=== PATIENT | female | born 1930 | race Caucasian/White ===

== ENCOUNTER 2016-02-29 15:44 | Inpatient (IN) | payer OTHER ==
[~2016-02-29] VITALS: Ht 154.9 cm; Wt 73.3 kg
[~2016-02-29 15:44] MED LIST: ACET-1311 PO; ADVIN25050 INH; ALBINS INH; ALBU1AER9 INH; ASCO500T3 PO; ATV1 PO; BENZ100C84 PO; CHOL100010 PO; CLOB-65 EXT; CZR50 PO; DPRSCR45 TOP; FULV250I2 IM; FURO40TA3 PO; LTRCR30 TOP; MELO7.5T5 PO; OXGN; PRED-301 PO; SERT-234 PO; TAMO20TA47 PO
[2016-02-29] MEDS ORDERED: SODIUM CHLORIDE 0.9% 1000ML 500 ML IV STA (16:00)
[2016-02-29] MEDS ORDERED: ONDANSETRON INJ 2 MG/ML 2 ML VIAL IV STA (16:00)
[2016-02-29] MEDS ORDERED: HYDROCORTISONE SOD SUCCINATE 100 MG/2 ML VIAL IV STA (16:00)
[2016-02-29] MEDS ORDERED: SODIUM CHLORIDE 0.9% 1000ML 1,000 ML IV STA (16:00)
--- NOTE | 2016-02-29 16:06 | EMERGENCY ROOM VISIT NOTE ---
History Report prepared by Madeleine: Bri Curry Under the Supervision of: Dr. Ashok Liriano M.D. First contact with patient: 15:50 Chief Complaint: DIARRHEA Stated Complaint: BOWELS ARE LOOSE History of Present Illness The patient is a 85 year old female who presents to the Emergency Room with complaints of worsening diarrhea that started two days ago. 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 Per the patient's daughter , there was not any blood in the diarrhea. The patient has never experienced these symptoms in the past. Her daughter reports that 10 days ago, the patient developed nausea. The patient's daughter took her to see her PCP and they said that everything appeared unremarkable. They sent her home with a nausea medication, but the nausea persisted so the patient had blood work done. The patient's daughter contacted the office about the results and they told her that everything was unremarkable. The patient is not eating as much as she normally does. She is also experiencing rhinorrhea, but her daughter has not noticed any coughing. The patient had diarrhea all day today, which is worse than it has been over the past two days. The patient was on antibiotics over and she has experienced C. Diff several years ago. The patient's daughter adds that the patient fell two times in the last few days. During the first fall, it appeared that the patient fell out of bed. During the second fall , the patient fell backwards--no injury was sustained. The patient's daughter adds that she is on prednisone every other day due to skin pruritus. Source of History: family (daughter) Onset: two days ago Quality: other (diarrhea) Timing: worsening Associated Symptoms: + nausea, No cough Note: rhinorrhea, decreased appetite Review of Systems See HPI for pertinent positives & negatives. A total of 10 systems reviewed and were otherwise negative. Past Medical & Surgical Medical Problems: (1) Breast cancer (2) Chest pain (3) COPD (chronic obstructive pulmonary disease) (4) Depressive disorder (5) DM (diabetes mellitus) (6) Dyslipidemia (7) HTN (hypertension) (8) Lung nodules (9) Osteoarthritis (10) Osteoporosis (11) Port catheter in place Surgical Problems: (1) H/O mastectomy (2) H/O: hysterectomy (3) History of appendectomy (4) History of cataract surgery (5) S/P knee replacement Family History Cancer Diabetes mellitus Gallbladder disease Heart disease Hypertension Social History Smoking Status: Former Smoker Alcohol Use: none Drug Use: none Marital Status: Housing Status: lives alone Occupation Status: retired Current/Historical Medications Scheduled Acetaminophen (Tylenol), 650 MG PO Q6HR PRN Albuterol 0.083% Soln (Ventolin 0.083% Soln *), 1 TREATMENT INH Q6HR PRN Ascorbic Acid (Vitamin C), 1,000 MG PO QAM Cholecalciferol (Vitamin D), 1,000 INTER.UNIT PO QAM Clobetasol Propionate 0.05% (Temovate 0.05%), 1 APPLN EXT Q2D Clotrimazole (Lotrimin 1%), 1 APPLN TOP BID Fluticasone Prop/Salmeterol (Advair Diskus 250-50 Mcg/Dose), 1 PUFF INH BID Fulvestrant (Faslodex), 250 MG IM Q4WK Furosemide (Lasix), 40 MG PO QAM Lorazepam (Ativan *), 1 MG PO TID Losartan Potassium (Cozaar *), 100 MG PO QAM Oxygen (Oxygen), 2 LITERS NA CONTINOUS Prednisone (Prednisone), 5 MG PO Q2D Sertraline (Zoloft), 100 MG PO HS Tamoxifen (Nolvadex), 20 MG PO DAILY Scheduled PRN Benzonatate (Tessalon Perles), 1 CAP PO TID PRN for Cough Betamethasone Dip (Betamethasone Dipropionat), 1 DOSE TOP DAILY PRN for PRN Allergies Coded Allergies: Amoxicillin (Verified Allergy, Mild, ITCHING, 02/29/16) Colchicine (Verified Allergy, Mild, RASH ITCHING, 02/29/16) Dimenhydrinate (Verified Allergy, Mild, ITCHING, 02/29/16) Homatropine (Verified Allergy, Mild, ITCHING, 02/29/16) Hydrocodone (Verified Allergy, Mild, ITCHING, 02/29/16) Hydroxyzine (Verified Allergy, Mild, ITCHING, 02/29/16) Meperidine (Verified Allergy, Mild, RASH, 02/29/16) Morphine (Verified Allergy, Mild, ITCHING, 02/29/16) Opioid Analgesics (Unverified Allergy, Mild, RASH ITCHING, 02/29/16) Allopurinol (Verified Allergy, Unknown, RASH, 02/29/16) ROSALIA Inhibitors (Unverified Adverse Reaction, Mild, COUGH, 02/29/16) Atorvastatin (Unverified Adverse Reaction, Mild, BONE PAIN, 02/29/16) Gabapentin (Unverified Adverse Reaction, Mild, FATIGUE, 02/29/16) Physical Exam Vital Signs Date Time Temp Pulse Resp B/P Pulse Ox O2 Delivery O2 Flow Rate FiO2 02/29/16 17:45 70 16 129/49 93 02/29/16 15:47 36.7 70 18 144/82 92 Room Air Physical Exam GENERAL: Patient is in no acute distress. HEENT: No acute trauma, normocephalic atraumatic, mucous membranes moist, no nasal congestion, no scleral icterus. NECK: No stridor, no adenopathy, no meningismus, trachea is midline. LUNGS: Clear to auscultation bilaterally, no wheeze, no rhonchi, breath sounds equal. HEART: Without murmurs gallops or rubs, regular rate and rhythm. ABDOMEN: Soft, nontender, bowel sounds positive, no hernias, no peritonitis. EXTREMITIES: No cyanosis or edema, full range of motion of all the joints without pain or difficulty, no signs for acute trauma. RECTAL: Brown stool, no hard stool in rectum, no gross blood. NEUROLOGIC: Moving all extremities, awake, alert, no focal motor deficits. SKIN: No rash, no jaundice, no diaphoresis. Medical Decision & Procedures ER Provider Diagnostic Interpretation: CT results as stated below per my review and radiologist interpretation: CT ABD/PELVIS IV CONTRAST ONLY IMPRESSION: 1. No evidence of bowel obstruction. No evidence of free air. 2. Sigmoid diverticulosis with wall thickening, likely secondary to peridiverticular muscular hypertrophy 3. Bilateral renal cysts including a relatively stable complex 24 mm upper pole left renal cyst containing rim calcification 4. Interval development of pancreatic ductal dilatation and 2 cystic pancreatic lesions measuring 13 mm and 26 mm respectively. These could represent IPMNs, or other cystic pancreatic lesions. GI consultation should be considered 5. Interval development of nonspecific small hypodense splenic lesions (tiny infarcts versus other etiologies) Electronically signed by: Werner Escobar M.D. 02/29/2016 5:45 PM Dictated Date/Time: 02/29/2016 5:34 PM Laboratory Results 02/29/16 15:55 Red Blood Count 3.77, Mean Corpuscular Volume 95.5, Mean Corpuscular Hemoglobin 32.9, Mean Corpuscular Hemoglobin Concent 34.4, Mean Platelet Volume 9.6, Neutrophils (%) (Auto) 67.4, Lymphocytes (%) (Auto) 16.2, Monocytes (%) (Auto) 14.3, Eosinophils (%) (Auto) 0.5, Basophils (%) (Auto) 0.2, Neutrophils # (Auto ) 2.92, Lymphocytes # (Auto) 0.70, Monocytes # (Auto) 0.62, Eosinophils # (Auto ) 0.02, Basophils # (Auto) 0.01 02/29/16 15:55 Test 02/29/16 15:55 White Blood Count 4.33 K/uL (4.8-10.8) Red Blood Count 3.77 M/uL (4.2-5.4) Hemoglobin 12.4 g/dL (12.0-16.0) Hematocrit 36.0 % (37-47) Mean Corpuscular Volume 95.5 fL (80-100) Mean Corpuscular Hemoglobin 32.9 pg (25-34) Mean Corpuscular Hemoglobin Concent 34.4 g/dl (32-36) Platelet Count 202 K/uL (130-400) Mean Platelet Volume 9.6 fL (7.4-10.4) Neutrophils (%) (Auto) 67.4 % Lymphocytes (%) (Auto) 16.2 % Monocytes (%) (Auto) 14.3 % Eosinophils (%) (Auto) 0.5 % Basophils (%) (Auto) 0.2 % Neutrophils # (Auto) 2.92 K/uL (1.4-6.5) Lymphocytes # (Auto) 0.70 K/uL (1.2-3.4) Monocytes # (Auto) 0.62 K/uL (0.11-0.59) Eosinophils # (Auto) 0.02 K/uL (0-0.5) Basophils # (Auto) 0.01 K/uL (0-0.2) RDW Standard Deviation 47.2 fL (36.4-46.3) RDW Coefficient of Variation 13.5 % (11.5-14.5) Immature Granulocyte % (Auto) 1.4 % Immature Granulocyte # (Auto) 0.06 K/uL (0.00-0.02) Anion Gap 13.0 mmol/L (3-11) Est Creatinine Clear Calc Drug Dose 52.2 ml/min Estimated GFR () 82.8 Estimated GFR (Non- 71.4 BUN/Creatinine Ratio 11.4 (10-20) Calcium Level 8.2 mg/dl (8.5-10.1) Total Bilirubin 0.3 mg/dl (0.2-1) Aspartate Amino Transf (AST/SGOT) 20 U/L (15-37) Alanine Aminotransferase (ALT/SGPT) 28 U/L (12-78) Alkaline Phosphatase 32 U/L (45-117) Total Protein 6.1 gm/dl (6.4-8.2) Albumin 2.9 gm/dl (3.4-5.0) Globulin 3.2 gm/dl (2.5-4.0) Albumin/Globulin Ratio 0.9 (0.9-2) Lipase 306 U/L (73-393) Laboratory results reviewed by me. Medications Administered Medications (Trade) Dose Ordered Sig/Michael Route Start Time Stop Time Status Last Admin Dose Admin Sodium Chloride (Nss 1000ml) 500 ml @ 999 mls/hr Q31M STAT IV 02/29/16 16:00 02/29/16 16:30 DC 02/29/16 16:21 999 MLS/HR Ondansetron HCl 4 mg 4 mg NOW STAT IV 02/29/16 16:00 02/29/16 16:03 DC 02/29/16 16:21 4 MG Sodium Chloride (Nss 1000ml) 1,000 ml @ 125 mls/hr Q8H STAT IV 02/29/16 16:00 02/29/16 23:59 02/29/16 16:50 125 MLS/HR Hydrocortisone Sodium Succinate (Solu-Cortef IV) 100 mg NOW STAT IV 02/29/16 16:00 02/29/16 16:03 DC 02/29/16 16:21 100 MG ED Course 1550: The patient was evaluated in room B11. A complete history and physical exam was performed. 1600: Ordered Hydrocortisone Sodium Succinate 100 mg IV, Sodium Chloride 1000 ml @ 125 mls/hr IV, Zofran 4 mg IV, Sodium Chloride 500 ml @ 999 mls/hr IV 1754: I reassessed the patient. She is resting comfortably. I also performed a rectal exam at this time. 175: I discussed the patient's case with the case making machine operator. She is going to go talk to the patient. Medical Decision Differential diagnoses considered include dehydration, electrolyte imbalance, anemia, renal failure, UTI, colitis, diverticulitis, C. Diff. There is no leukocytosis or worrisome anemia. No significant electrolyte abnormality, kidney failure or hepatitis. There is no pancreatitis. Stool C. difficile testing is presently pending as the patient has not yet been able to provide a sample. Abdominal and pelvis CT shows some findings in the pancreas for which follow-up was suggested, I suspect the pancreatic findings are incidental findings. There was no diverticulitis or bowel obstruction. No abscess. On my exam, there was no peritonitis. The patient was not febrile or toxic. Rectal exam revealed no stool in the rectal vault, the stool was brown and there was no gross blood. The patient received IV saline, IV Zofran. She was given IV hydrocortisone as stress dose steroids. The family is concerned about her safety at home as she has fallen twice. We did look to see if there was availability at [facility] for rehabilitation and strengthening however, there are no beds available. The patient was seen by case management. The decision has been made for the patient to be hospitalized and assessed further for placement versus rehabilitation. She is too weak to be discharged home. The on-call hospitalist was consulted. At this point, the etiology for her complaints and presentation is unclear. We await stool testing. Impression Primary Impression: Weakness Additional Impressions: Frequent falls Diarrhea Scribe Attestation The scribe's documentation has been prepared under my direction and personally reviewed by me in its entirety. I confirm that the note above accurately reflects all work, treatment, procedures, and medical decision making performed by me. Departure Information Dispostion Being Evaluated By Hospitalist Referrals Humberto Ibanez D.O. (PCP) Patient Instructions My [facility] Problem Qualifiers
[2016-02-29] MEDS ORDERED: OPTIRAY 320 IV PRN (16:15)
[2016-02-29 16:35] LABS: MEAN CELL VOLUME 95.5 fL (80-100); MEAN CORPUSCULAR HEMOGLOBIN 32.9 pg (25-34); MEAN CORPUSCULAR HGB CONC 34.4 g/dl (32-36); MEAN PLATELET VOLUME 9.6 fL (7.4-10.4); PLATELET COUNT 202 K/uL (130-400); RED BLOOD COUNT 3.77 M/uL (4.2-5.4); WHITE BLOOD COUNT 4.33 K/uL (4.8-10.8)
[2016-02-29 16:50] LABS: BUN/CREATININE RATIO 11.4 (10-20); CALCIUM 8.2 mg/dl (8.5-10.1); CREATININE 0.77 mg/dl (0.60-1.20); POTASSIUM 3.1 mmol/L (3.5-5.1)
[2016-02-29 16:53] LABS: ALB/GLOB RATIO 0.9 (0.9-2)
[2016-02-29 17:10] LABS: BASO % 0.2 %; BASO ABS # 0.01 K/uL (0-0.2); COMPLETE YES; EOS % 0.5 %; IG% 1.4 %; LYMPH % 16.2 %; MONO % 14.3 %; NEUT % 67.4 %
--- NOTE | 2016-02-29 17:47 | DIAGNOSTIC IMAGING REPORT ---
CT ABD/PELVIS IV CONTRAST ONLY CLINICAL HISTORY: Generalized abdominal pain COMPARISON STUDY: 02/22/2009 TECHNIQUE: Following the IV administration of 118 mL of [id number], CT scan of the abdomen and pelvis was performed from the lung bases to the proximal femurs. Images are reviewed in the axial, sagittal, and coronal planes. IV contrast was administered without complication. CT DOSE: 602.27 mGy.cm FINDINGS: Lower chest: There is bibasal atelectasis. Liver: There is mild hepatic steatosis. No focal masses are visualized. There is no ductal dilatation. The portal vein appears patent. Gallbladder: Unremarkable. Spleen: The spleen is normal in size. Since the prior study, the patient has developed several small peripheral hypodense hepatic lesions, the largest of which measures 1 cm. Pancreas: Since the prior study, the patient has developed pancreatic ductal dilatation. There is a 26 mm cystic lesion within the pancreatic tail. There is a 13 mm cystic lesion within the pancreatic body with adjacent calcifications. GI consultation is recommended for consideration of endoscopic ultrasonographic follow-up. Adrenal glands: Unremarkable. Kidneys: There are bilateral renal cysts, including a complex 24 mm upper pole left renal cyst containing rim calcification. This remain similar to the prior study. Bowel: There are no transition zones indicate bowel obstruction. There is colonic diverticulosis. There is mild sigmoid wall thickening, likely secondary to peridiverticular muscular hypertrophy. There is no evidence of acute peridiverticular inflammatory change. Peritoneum: There is no intraperitoneal free air or abdominal ascites. Vasculature: The abdominal aorta is normal in course and caliber. Adenopathy: None. Pelvic viscera: The uterus appears surgically absent. Skeletal structures: Arthritic changes are present within the hips right greater than left. No destructive lesions are visualized. IMPRESSION: 1. No evidence of bowel obstruction. No evidence of free air. 2. Sigmoid diverticulosis with wall thickening, likely secondary to peridiverticular muscular hypertrophy 3. Bilateral renal cysts including a relatively stable complex 24 mm upper pole left renal cyst containing rim calcification 4. Interval development of pancreatic ductal dilatation and 2 cystic pancreatic lesions measuring 13 mm and 26 mm respectively. These could represent IPMNs, or other cystic pancreatic lesions. GI consultation should be considered 5. Interval development of nonspecific small hypodense splenic lesions (tiny infarcts versus other etiologies) Electronically signed by: Werner Escobar M.D. 02/29/2016 5:45 PM Dictated Date/Time: 02/29/2016 5:34 PM
[2016-02-29] MEDS ORDERED: ACETAMINOPHEN 325 MG TAB PO PRN (19:00)
[2016-02-29] MEDS ORDERED: ONDANSETRON INJ 2 MG/ML 2 ML VIAL IV PRN (19:00)
[2016-02-29] MEDS ORDERED: ALBUTEROL 0.083% NEBU SOLN 3 ML VIAL INH PRN (19:30)
[2016-02-29] MEDS ORDERED: CAMPLOT10 EXT (19:35)
[2016-02-29] MEDS ORDERED: PRVHFAIN INH (19:35)
[2016-02-29] MEDS ORDERED: MRLP17X PO (19:35)
[2016-02-29] MEDS ORDERED: TRMCR130WC EXT (19:35)
[2016-02-29] MEDS ORDERED: CLOT1CRE4 TOP (19:35)
[2016-02-29] MEDS ORDERED: RBTUDL5 PO (19:35)
[2016-02-29] MEDS ORDERED: ONDA4TAB46 PO (19:35)
[2016-02-29] MEDS ORDERED: GLUCOSE 10 TABS/TUBE PO PRN (19:45)
[2016-02-29] MEDS ORDERED: GLUCOSE 40% GEL 15 GM TUBE PO PRN (19:45)
[2016-02-29] MEDS ORDERED: GLUCAGON FOR INJ 1 MG VIAL SQ PRN (19:45)
[2016-02-29] MEDS ORDERED: DEXTROSE 50% 50 ML SYR IV PRN (19:45)
[2016-02-29] MEDS ORDERED: IV FLUIDS COMPLETED PRN (19:45)
--- NOTE | 2016-02-29 20:03 | History and Physical ---
History & Physical Date & Time of Service: Feb 29, 2016 at 19:42 Chief Complaint: Bowels Are Loose Primary Care Physician: Humberto Ibanez D.O. History of Present Illness Source: family, clinic records, hospital records This is an 85 year old female with PMH of COPD, HTN, DM type 2 diet controlled, breast cancer with bone metastasis, primary progressive aphasia, questionable history of CVA, who presents to the ED for nausea, diarrhea, and poor PO intake. History obtained from family due to patient's aphasia. Starting 1.5 weeks ago patient became ill with nausea and poor PO intake. Denies vomiting. She was seen in clinic and prescribed Zofran which did not help. Then starting 2 days ago she has diarrhea which worsened today. Family reports large amount of foul smelling liquid stool with incontinence. They did not notice any blood. Family feels she may be dizzy due to poor PO intake. Patient has lost 8 lb in past few weeks. Family states she is always cold and has chronic rhinorrhea. Family denies any fevers, apparent chest pain, SOB. Family reported to ER disease case manager rn that patient has been generally weak and had multiple falls in past month. Patient was on antibiotics in late January for URI symptoms. 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 Anterior mediastinal lymph node showed malignant cells on biopsy 2009 Metastatic disease to multiple bones 2009 (C2, T6, R acetabulum, R pubic ramus) Recieving Faslodex since 2009 Status: Chronic (2) COPD (chronic obstructive pulmonary disease) Status: Chronic (3) Depressive disorder Status: Chronic (4) DM (diabetes mellitus) Status: Chronic (5) Dyslipidemia Permanent Comment: Statin discontinued Jan 2014 due to patient preference Status: Chronic (6) HTN (hypertension) Status: Chronic (7) Lung nodules Permanent Comment: CT 07/23/2009 showed RLL lung nodule (4x2 mm, unchanged), LLL lung nodule (5 mm, unchanged); other lung nodules remained stable, no new lung nodules noted Status: Chronic (8) Osteoarthritis Status: Chronic (9) Osteoporosis Status: Chronic (10) Port catheter in place Permanent Comment: L subclavian tunnel A-port inserted 01/26/2010 Status: Chronic Surgical Problems: (1) H/O mastectomy Status: Chronic (2) H/O: hysterectomy Status: Chronic (3) History of appendectomy Permanent Comment: Incidental with hysterectomy Status: Chronic (4) History of cataract surgery Permanent Comment: bilateral Status: Chronic (5) S/P knee replacement Permanent Comment: L knee replacement Status: Chronic Family History Cancer Diabetes mellitus Gallbladder disease Heart disease Hypertension Social History Not obtainable due to aphasia. Marital Status: Housing status: lives alone Occupational Status: retired Immunizations History of Influenza Vaccine: N/A Influenza Vaccine Date: Oct 29, 2008 History of Tetanus Vaccine?: Yes History of Pneumococcal: Yes Pneumococcal Date: Dec 05, 1997 History of Hepatitis B Vaccine: Yes Multi-Drug Resistant Organisms History of MDRO: No Allergies Coded Allergies: Amoxicillin (Verified Allergy, Mild, ITCHING, 02/29/16) Colchicine (Verified Allergy, Mild, RASH ITCHING, 02/29/16) Dimenhydrinate (Verified Allergy, Mild, ITCHING, 02/29/16) Homatropine (Verified Allergy, Mild, ITCHING, 02/29/16) Hydrocodone (Verified Allergy, Mild, ITCHING, 02/29/16) Hydroxyzine (Verified Allergy, Mild, ITCHING, 02/29/16) Meperidine (Verified Allergy, Mild, RASH, 02/29/16) Morphine (Verified Allergy, Mild, ITCHING, 02/29/16) Opioid Analgesics (Unverified Allergy, Mild, RASH ITCHING, 02/29/16) Allopurinol (Verified Allergy, Unknown, RASH, 02/29/16) ROSALIA Inhibitors (Unverified Adverse Reaction, Mild, COUGH, 02/29/16) Atorvastatin (Unverified Adverse Reaction, Mild, BONE PAIN, 02/29/16) Gabapentin (Unverified Adverse Reaction, Mild, FATIGUE, 02/29/16) Home Medications Scheduled Acetaminophen (Tylenol), 650 MG PO Q6HR PRN Albuterol 0.083% Soln (Ventolin 0.083% Soln *), 1 TREATMENT INH Q6HR PRN Ascorbic Acid (Vitamin C), 1,000 MG PO QAM Camphor & Menthol (Sarna), 1 APPLN EXT UD Cholecalciferol (Vitamin D), 1,000 INTER.UNIT PO QAM Clotrimazole (Lotrimin 1%), 1 APPLN TOP BID Fluticasone Prop/Salmeterol (Advair Diskus 250-50 Mcg/Dose), 1 PUFF INH BID Fulvestrant (Faslodex), 250 MG IM Q4WK Furosemide (Lasix), 20 MG PO QAM Lorazepam (Ativan *), 1 MG PO DAILY Losartan Potassium (Cozaar *), 100 MG PO QAM Oxygen (Oxygen), 2 LITERS NA CONTINOUS Prednisone (Prednisone), 5 MG PO Q2D Sertraline (Zoloft), 100 MG PO HS Tamoxifen (Nolvadex), 20 MG PO DAILY Scheduled PRN Albuterol (Ventolin Hfa), 2 PUFF INH Q4 PRN for SOB/Wheezing Benzonatate (Tessalon Perles), 1 CAP PO TID PRN for Cough Betamethasone Dip (Betamethasone Dipropionat), 1 DOSE TOP DAILY PRN for PRN Clobetasol Propionate 0.05% (Temovate 0.05%), 1 APPLN EXT BID PRN for skin impairment Clotrimazole (Topical) (Lotrimin Af), 1 APPLN TOP BID PRN for skin impairment Guaifenesin (Robitussin), 4 ML PO Q4H PRN for Cough Ondansetron Hcl (Zofran), 4 MG PO Q6 PRN for Nausea Polyethylene (Miralax), 17 MG PO DAILY PRN for Constipation Triamcinolone Acet (Aristocort 0.1%), 1 APPLN EXT BID PRN for skin impairment Review of Systems Not obtainable due to aphasia. Physical Exam Vital Signs Date Time Temp Pulse Resp B/P Pulse Ox O2 Delivery O2 Flow Rate FiO2 02/29/16 19:24 93 Nasal Cannula 2.0 02/29/16 19:23 78 20 133/57 88 Room Air 02/29/16 17:45 70 16 129/49 93 02/29/16 15:47 36.7 70 18 144/82 92 Room Air General Appearance: WD/WN, no apparent distress Head: normocephalic, atraumatic Eyes: normal inspection, PERRL, EOMI ENT: hearing grossly normal, pharynx normal Neck: supple, trachea midline Respiratory/Chest: lungs clear, normal breath sounds, no respiratory distress, no accessory muscle use Cardiovascular: regular rate, rhythm, no murmur Abdomen/GI: normal bowel sounds, soft, + pertinent finding (diffuse tenderness. no guarding/ rigidity. ) Extremities/Musculoskelatal: normal inspection, no pedal edema Neurologic/Psych: alert, normal mood/affect, + pertinent finding (chronic aphasia. does answer yes or no, but not reliable to answer questions correctly as per family) Skin: normal color, warm/dry Diagnostics Laboratory Results Results Past 24 Hours Test 02/29/16 15:55 Range/Units White Blood Count 4.33 4.8-10.8 K/uL Red Blood Count 3.77 4.2-5.4 M/uL Hemoglobin 12.4 12.0-16.0 g/dL Hematocrit 36.0 37-47 % Mean Corpuscular Volume 95.5 80-100 fL Mean Corpuscular Hemoglobin 32.9 25-34 pg Mean Corpuscular Hemoglobin Concent 34.4 32-36 g/dl Platelet Count 202 130-400 K/uL Mean Platelet Volume 9.6 7.4-10.4 fL Neutrophils (%) (Auto) 67.4 % Lymphocytes (%) (Auto) 16.2 % Monocytes (%) (Auto) 14.3 % Eosinophils (%) (Auto) 0.5 % Basophils (%) (Auto) 0.2 % Neutrophils # (Auto) 2.92 1.4-6.5 K/uL Lymphocytes # (Auto) 0.70 1.2-3.4 K/uL Monocytes # (Auto) 0.62 0.11-0.59 K/uL Eosinophils # (Auto) 0.02 0-0.5 K/uL Basophils # (Auto) 0.01 0-0.2 K/uL RDW Standard Deviation 47.2 36.4-46.3 fL RDW Coefficient of Variation 13.5 11.5-14.5 % Immature Granulocyte % (Auto) 1.4 % Immature Granulocyte # (Auto) 0.06 0.00-0.02 K/uL Sodium Level 141 136-145 mmol/L Potassium Level 3.1 3.5-5.1 mmol/L Chloride Level 102 98-107 mmol/L Carbon Dioxide Level 26 21-32 mmol/L Anion Gap 13.0 3-11 mmol/L Blood Urea Nitrogen 9 7-18 mg/dl Creatinine 0.77 0.60-1.20 mg/dl Est Creatinine Clear Calc Drug Dose 52.2 ml/min Estimated GFR () 82.8 Estimated GFR (Non- 71.4 BUN/Creatinine Ratio 11.4 10-20 Random Glucose 185 70-99 mg/dl Calcium Level 8.2 8.5-10.1 mg/dl Total Bilirubin 0.3 0.2-1 mg/dl Aspartate Amino Transf (AST/SGOT) 20 15-37 U/L Alanine Aminotransferase (ALT/SGPT) 28 12-78 U/L Alkaline Phosphatase 32 45-117 U/L Total Protein 6.1 6.4-8.2 gm/dl Albumin 2.9 3.4-5.0 gm/dl Globulin 3.2 2.5-4.0 gm/dl Albumin/Globulin Ratio 0.9 0.9-2 Lipase 306 73-393 U/L Diagnostic Radiology CT ABD/PELVIS IV CONTRAST ONLY CLINICAL HISTORY: Generalized abdominal pain COMPARISON STUDY: 02/22/2009 TECHNIQUE: Following the IV administration of 118 mL of Optiray-320, CT scan of the abdomen and pelvis was performed from the lung bases to the proximal femurs. Images are reviewed in the axial, sagittal, and coronal planes. IV contrast was administered without complication. CT DOSE: 602.27 mGy.cm FINDINGS: Lower chest: There is bibasal atelectasis. Liver: There is mild hepatic steatosis. No focal masses are visualized. There is no ductal dilatation. The portal vein appears patent. Gallbladder: Unremarkable. Spleen: The spleen is normal in size. Since the prior study, the patient has developed several small peripheral hypodense hepatic lesions, the largest of which measures 1 cm. Pancreas: Since the prior study, the patient has developed pancreatic ductal dilatation. There is a 26 mm cystic lesion within the pancreatic tail. There is a 13 mm cystic lesion within the pancreatic body with adjacent calcifications. GI consultation is recommended for consideration of endoscopic ultrasonographic follow-up. Adrenal glands: Unremarkable. Kidneys: There are bilateral renal cysts, including a complex 24 mm upper pole left renal cyst containing rim calcification. This remain similar to the prior study. Bowel: There are no transition zones indicate bowel obstruction. There is colonic diverticulosis. There is mild sigmoid wall thickening, likely secondary to peridiverticular muscular hypertrophy. There is no evidence of acute peridiverticular inflammatory change. Peritoneum: There is no intraperitoneal free air or abdominal ascites. Vasculature: The abdominal aorta is normal in course and caliber. Adenopathy: None. Pelvic viscera: The uterus appears surgically absent. Skeletal structures: Arthritic changes are present within the hips right greater than left. No destructive lesions are visualized. IMPRESSION: 1. No evidence of bowel obstruction. No evidence of free air. 2. Sigmoid diverticulosis with wall thickening, likely secondary to peridiverticular muscular hypertrophy 3. Bilateral renal cysts including a relatively stable complex 24 mm upper pole left renal cyst containing rim calcification 4. Interval development of pancreatic ductal dilatation and 2 cystic pancreatic lesions measuring 13 mm and 26 mm respectively. These could represent IPMNs, or other cystic pancreatic lesions. GI consultation should be considered 5. Interval development of nonspecific small hypodense splenic lesions (tiny infarcts versus other etiologies) Impression Assessment and Plan NAUSEA/ DIARRHEA Possible viral gastroenteritis CT a/p- no obstruction, sigmoid diverticulosis, renal cysts, panc ductal dilatation and 2 pancreatic cystic lesions- GI consultation recommended, small nonspecific splenic lesions Clear liquid diet to advance as tolerated Check stool studies- C. diff, stool culture, fecal leukocytes Supportive care with IVF's, antiemetics HYPOKALEMIA From GI loss due to diarrhea Check magnesium level Replace and monitor DM TYPE 2 Diet controlled Insulin sliding scale coverage BREAST CANCER with BONE METASTASIS S/p right mastectomy Bone mets asymptomatic per family Hold tamoxifen during hospitalization CHRONIC PREDNISONE On chronic 5 mg Q2D for skin irritation/ itching Received stress dose of hydrocortisone in ER Will continue home dose HYPERTENSION BP is controlled Hold Lasix for now due to dehydration COPD Not in acute exacerbation Continue home Advair and PRN neb NOCTURNAL HYPOXEMIA Continue chronic 2 liters NC HS GENERALIZED WEAKNESS/ AMBULATORY DYSFUNCTION Due to illness/ dehydration Check influenza PCR PT/ OT consults DVT PROPHYLAXIS Heparin SQ DISPOSITION Admit to med/surg Follows with Dr. Ibanez for primary care Consult PT, OT, and health and social care teacher as patient lives alone and may need placement Per ER disease case manager rn Liana family interested in SNF Patient seen in collaboration with Dr. Dunlap. Please see his addendum. Attending Note: Patient is an 85 yr old female with PMH of COPD, HTN, DM II, metastatic breast cancer, primary progressive aphasia and other comorbidities presents with history of nausea, loose watery non bloody diarrhea, decreased oral intake since about 10 days duration. She lost about 8 pounds in 2 weeks. She had taken antibiotics for an URI in Jan 2016. She has a remote history of c.diff. Family denies any other relevant positive history. Physical Exam: Vitals signs as noted above General Appearance:Moderately built and nourished, no apparent distress Head: normocephalic, Atraumatic Eyes: normal inspection, PERRLA, Anicteric Neck: supple, no JVD, Trachea midline Respiratory/Chest: Normal breath sounds, CTA, No accessory muscle use Cardiovascular: S1, S2, NSR, No murmur Abdomen/GI:Soft, mild tenderness diffusely, BS present, No guarding/rigidity Extremities/Musculoskeletal:normal inspection, no calf tenderness, edema Neurologic/Psych:AAOX3, grossly no focal neurological deficits Skin:normal color,warm Assessment and Plan: Diarrhea, nausea and abdominal pain: Likely viral gastroenteritis, R/O C.diff H/O recent antibiotic use and remote h/o c.diff CT abd: no signs of obstruction Other findigs: Diverticulosis, renal cysts, pancreatic ductal dilatation and cystic lesions No leukocytosis, afebrile currently start clear liquid diet and advance as tolerated Check stool for C. diff, fecal leukocytes IV fluids, check FOBT Hypokalemia: Secondary to diarrhea. Replace and monitor Check Mg levels On chronic Prednisone use: Stress dose of hydrocortisone given in ED Metastatic Brest Cancer S/P R mastectomy Hold chemo meds for now I personally reviewed the record. Patient is interviewed and examined at bedside. Patient's care is coordinated with Yue Pina PA-C. Please refer to the documentation above for details of patient's presentation and for discussion of other issues. VTE Prophylaxis VTE Risk Assessment Done? Y/N: Yes Risk Level: High
[2016-02-29 20:33] LABS: PROTHROMBIN TIME (PATIENT) 10.6 SECONDS (9.0-12.0)
[2016-02-29] MEDS: INSULIN ASPART 100 UNITS/ML 3 ML PEN SC SCH (21:00)
[2016-02-29] MEDS: NSS + 20MEQ KCL 1000ML 1,000 ML IV SCH (21:38)
[2016-02-29] MEDS: HEPARIN SOD 5000 UNIT/0.5 ML CARP SQ SCH (21:39)
[2016-02-29] MEDS: FLUTICASONE/SALMETEROL 250/50 (ADVAIR) 14 PUFF/1 INHALER INH SCH (21:40)
[2016-02-29] MEDS: POTASSIUM CHLR 10 MEQ / WTR 10 MEQ in PREMIXED WATER 100 ML IV SCH ×2 (21:40→23:53)
[2016-02-29] MEDS: SERTRALINE HCL 100 MG TAB PO SCH (21:41)
[2016-02-29] MEDS: LORAZEPAM 1 MG TAB PO SCH (21:42)
[2016-02-29 22:29] LABS: URINE APPEARANCE CLEAR (CLEAR); URINE BILIRUBIN NEG (NEG); URINE COLOR YELLOW; URINE NITRITE NEG (NEG); URINE SPECIFIC GRAVITY > 1.045 (1.000-1.030); UROBILINOGEN NEG (NEG); ZZUR CULT IF INDIC CLEAN CATCH NO
[2016-02-29 22:34] LABS: MANUAL MICROSCOPIC REQUIRED? NO; REVIEW REQ? NO
[2016-02-29 23:27] VITALS: BP 147/61; PULSE 73; TEMP 36.7; O2SAT 93; BMI 31.2
[2016-02-29 23:48] LABS: INFLUENZA A PCR Neg for Influ A (NEG); INFLUENZA B PCR Neg for Influ B (NEG)
[2016-03-01 00:14] VITALS: BP 129/62; PULSE 73; TEMP 36.7; O2SAT 97
[2016-03-01] MEDS: POTASSIUM CHLR 10 MEQ / WTR 10 MEQ in PREMIXED WATER 100 ML IV SCH ×2 (01:12→02:33)
[2016-03-01] MEDS: HEPARIN SOD 5000 UNIT/0.5 ML CARP SQ SCH ×3 (05:53→20:14)
[2016-03-01] MEDS: INSULIN ASPART 100 UNITS/ML 3 ML PEN SC SCH ×4 (06:30→20:11)
[2016-03-01] MEDS: NSS + 20MEQ KCL 1000ML 1,000 ML IV SCH ×2 (07:44→17:43)
[2016-03-01] MEDS: FLUTICASONE/SALMETEROL 250/50 (ADVAIR) 14 PUFF/1 INHALER INH SCH ×2 (07:44→20:11)
[2016-03-01] MEDS: LOSARTAN POTASSIUM 50 MG TAB PO SCH (07:45)
[2016-03-01 08:00] VITALS: O2SAT 97
[2016-03-01 08:02] VITALS: BP 148/75; PULSE 72; TEMP 36.9; O2SAT 98
[2016-03-01 08:35] LABS: HEMATOCRIT 34.7 % (37-47); MEAN CELL VOLUME 95.3 fL (80-100); MEAN CORPUSCULAR HEMOGLOBIN 32.4 pg (25-34); MEAN PLATELET VOLUME 9.5 fL (7.4-10.4); PLATELET COUNT 194 K/uL (130-400); RED BLOOD COUNT 3.64 M/uL (4.2-5.4); WHITE BLOOD COUNT 3.79 K/uL (4.8-10.8)
[2016-03-01 09:12] LABS: BUN/CREATININE RATIO 8.5 (10-20); CALCIUM 7.7 mg/dl (8.5-10.1); CREATININE 0.6 mg/dl (0.60-1.20); MAGNESIUM 2.2 mg/dl (1.8-2.4); POTASSIUM 3.7 mmol/L (3.5-5.1)
--- NOTE | 2016-03-01 09:40 | Progress Note ---
Subjective Date of Service: Mar 01, 2016. Subjective Pt evaluation today including: conversation w/ patient, conversation w/ family , physical exam, lab review, review of studies, review of inpatient medication list Saw/examined the patient in room 254 Doing okay today, no diarrhea this morning No nausea/vomiting Tolerated clears for breakfast Problem List Medical Problems: (1) Diarrhea Status: Acute (2) Frequent falls Status: Acute (3) Precordial chest pain Status: Acute (4) Weakness Status: Acute Review of Systems Constitutional: No chills, No fever Respiratory: No cough, No shortness of breath, No sputum Cardiac: No chest pain, No edema, No palpitations Abdomen: + diarrhea (improving), + nausea (improving), No pain, No vomiting Medications Current Inpatient Medications Medications (Trade) Dose Ordered Sig/Michael Route Start Time Stop Time Status Last Admin Dose Admin Ioversol (Optiray 320) 100 ml UD PRN IV 02/29/16 16:15 03/04/16 16:14 Heparin Sodium (Porcine) (Heparin Sq 5000 Unit/0.5ml) 5,000 unit Q8 SQ 02/29/16 22:00 03/30/16 21:59 03/01/16 05:53 5,000 UNIT Acetaminophen (Tylenol Tab) 650 mg Q4H PRN PO 02/29/16 19:00 03/30/16 18:59 Ondansetron HCl 4 mg 4 mg Q6H PRN IV 02/29/16 19:00 03/30/16 18:59 Potassium Chloride/Sodium Chloride (Nss + 20meq KCl 1000ml) 1,000 ml @ 100 mls/hr Q10H IV 02/29/16 19:30 03/30/16 19:29 03/01/16 07:44 100 MLS/HR Albuterol Sulfate (Ventolin 0.083% 2.5MG/3ML Neb) 2.5 mg QIDR PRN INH 02/29/16 19:30 03/30/16 19:29 Salmeterol Xinafoate/ Fluticasone (Advair Diskus 250/50 Inh) 1 puff BID INH 02/29/16 21:00 03/30/16 20:59 03/01/16 07:44 1 PUFF Lorazepam (Ativan Tab) 1 mg HS PO 02/29/16 21:00 03/30/16 20:59 02/29/16 21:42 1 MG Losartan Potassium (coZAAR TAB) 100 mg QAM PO 03/01/16 09:00 03/31/16 08:59 03/01/16 07:45 100 MG Prednisone (PredniSONE TAB) 5 mg Q2D@0900 PO 03/01/16 09:00 03/31/16 08:59 03/01/16 07:45 5 MG Sertraline HCl (Zoloft Tab) 100 mg HS PO 02/29/16 21:00 03/30/16 20:59 02/29/16 21:41 100 MG Insulin Aspart (novoLOG ASPART) SLIDING SCALE If C... ACHS SC 02/29/16 21:00 03/30/16 20:59 Glucose (Glucose 40% Gel) 15-30 GRAMS 15 GRAMS... UD PRN PO 02/29/16 19:45 03/30/16 19:44 Glucose (Glucose Chew Tab) 4-8 Tablets 4 Tabl... UD PRN PO 02/29/16 19:45 03/30/16 19:44 Dextrose (Dextrose 50% 50ML Syringe) 25-50ML OF 50% DW IV FOR... UD PRN IV 02/29/16 19:45 03/30/16 19:44 Glucagon (Glucagon Inj) 1 mg UD PRN SQ 02/29/16 19:45 03/30/16 19:44 Miscellaneous (Iv Fluids Completed) 1 ea PRN PRN N/A 02/29/16 19:45 02/28/17 19:44 Objective Vital Signs Date Time Temp Pulse Resp B/P Pulse Ox O2 Delivery O2 Flow Rate FiO2 03/01/16 08:02 36.9 72 20 148/75 98 03/01/16 00:14 36.7 73 18 129/62 97 2.0 03/01/16 00:00 Nasal Cannula 2.0 02/29/16 23:27 36.7 73 20 147/61 93 Nasal Cannula 2.0 02/29/16 19:24 93 Nasal Cannula 2.0 02/29/16 19:23 78 20 133/57 88 Room Air 02/29/16 17:45 70 16 129/49 93 02/29/16 15:47 36.7 70 18 144/82 92 Room Air Physical Exam General Appearance: no apparent distress Respiratory/Chest: lungs clear, normal breath sounds, no respiratory distress, no accessory muscle use Cardiovascular: regular rate, rhythm, no edema, no murmur Abdomen: normal bowel sounds, non tender, soft Extremities: normal inspection, no pedal edema Laboratory Results Last 24 Hours Test 02/29/16 15:05 02/29/16 15:55 02/29/16 20:43 02/29/16 21:00 Prothrombin Time 10.6 SECONDS Prothromb Time International Ratio 1.0 White Blood Count 4.33 K/uL Red Blood Count 3.77 M/uL Hemoglobin 12.4 g/dL Hematocrit 36.0 % Mean Corpuscular Volume 95.5 fL Mean Corpuscular Hemoglobin 32.9 pg Mean Corpuscular Hemoglobin Concent 34.4 g/dl Platelet Count 202 K/uL Mean Platelet Volume 9.6 fL Neutrophils (%) (Auto) 67.4 % Lymphocytes (%) (Auto) 16.2 % Monocytes (%) (Auto) 14.3 % Eosinophils (%) (Auto) 0.5 % Basophils (%) (Auto) 0.2 % Neutrophils # (Auto) 2.92 K/uL Lymphocytes # (Auto) 0.70 K/uL Monocytes # (Auto) 0.62 K/uL Eosinophils # (Auto) 0.02 K/uL Basophils # (Auto) 0.01 K/uL RDW Standard Deviation 47.2 fL RDW Coefficient of Variation 13.5 % Immature Granulocyte % (Auto) 1.4 % Immature Granulocyte # (Auto) 0.06 K/uL Sodium Level 141 mmol/L Potassium Level 3.1 mmol/L Chloride Level 102 mmol/L Carbon Dioxide Level 26 mmol/L Anion Gap 13.0 mmol/L Blood Urea Nitrogen 9 mg/dl Creatinine 0.77 mg/dl Est Creatinine Clear Calc Drug Dose 52.2 ml/min Estimated GFR () 82.8 Estimated GFR (Non- 71.4 BUN/Creatinine Ratio 11.4 Random Glucose 185 mg/dl Calcium Level 8.2 mg/dl Magnesium Level 2.1 mg/dl Total Bilirubin 0.3 mg/dl Aspartate Amino Transf (AST/SGOT) 20 U/L Alanine Aminotransferase (ALT/SGPT) 28 U/L Alkaline Phosphatase 32 U/L Total Protein 6.1 gm/dl Albumin 2.9 gm/dl Globulin 3.2 gm/dl Albumin/Globulin Ratio 0.9 Lipase 306 U/L Bedside Glucose 158 mg/dl Urine Color YELLOW Urine Appearance CLEAR Urine pH 5.0 Urine Specific Freedom > 1.045 Urine Protein NEG Urine Glucose (UA) NEG Urine Ketones 1+ Urine Occult Blood NEG Urine Nitrite NEG Urine Bilirubin NEG Urine Urobilinogen NEG Urine Leukocyte Esterase NEG Influenza Type A (RT-PCR) Neg for Influ A Influenza Type B (RT-PCR) Neg for Influ B Test 03/01/16 04:45 03/01/16 07:27 03/01/16 08:10 Stool Occult Blood NEGATIVE Bedside Glucose 86 mg/dl White Blood Count 3.79 K/uL Red Blood Count 3.64 M/uL Hemoglobin 11.8 g/dL Hematocrit 34.7 % Mean Corpuscular Volume 95.3 fL Mean Corpuscular Hemoglobin 32.4 pg Mean Corpuscular Hemoglobin Concent 34.0 g/dl RDW Standard Deviation 47.7 fL RDW Coefficient of Variation 13.7 % Platelet Count 194 K/uL Mean Platelet Volume 9.5 fL Sodium Level 144 mmol/L Potassium Level 3.7 mmol/L Chloride Level 109 mmol/L Carbon Dioxide Level 26 mmol/L Anion Gap 9.0 mmol/L Blood Urea Nitrogen 5 mg/dl Creatinine 0.60 mg/dl Est Creatinine Clear Calc Drug Dose 65.8 ml/min Estimated GFR () 97.7 Estimated GFR (Non- 84.3 BUN/Creatinine Ratio 8.5 Random Glucose 109 mg/dl Calcium Level 7.7 mg/dl Magnesium Level 2.2 mg/dl Assessment and Plan This is an 85 year old female with PMH of COPD, HTN, DM2, hx. of breast CA with mets, primary progressive aphasia presents with nausea/diarrhea and ambulatory dysfunction Nausea/vomiting likely Viral Gastroenteritis * abdominal/pelvic CT sigmoid diverticulosis, pancreatic duct dilatation, renal cysts * plan is for IVFs * clears for lunch * advance diet for dinner (03/01) * antibiotic use at the end of January 2016 * check for C. diff * check stool cultures Ambulatory Dysfunction * plan is for PT/OT * as per daughter, they would like short course of rehab * at baseline, supposed to use walker, but does not use this much * discharge planning eval - patient lives alone, short rehab may be needed Hypokalemia, resolved * From GI loss due to diarrhea DM2 * Diet controlled * Insulin sliding scale coverage Breast CA with bone mets * S/p right mastectomy * Bone mets asymptomatic per family * Hold tamoxifen during hospitalization Chronic Skin Irritation * chronic prednisone use; q2days HTN * BP is controlled, continue Cozaar * Hold Lasix for now due to dehydration COPD * Not in acute exacerbation * Continue home Advair and PRN neb * Continue chronic 2 liters NC HS DVT ppx * subq heparin FULL CODE
[2016-03-01 15:07] VITALS: BP 119/54; PULSE 62; TEMP 36.4; O2SAT 98
[2016-03-01] MEDS: LORAZEPAM 1 MG TAB PO SCH (20:11)
[2016-03-01] MEDS: SERTRALINE HCL 100 MG TAB PO SCH (20:11)
[2016-03-01 23:45] VITALS: BP 121/54; PULSE 76; TEMP 36.5; O2SAT 95
[2016-03-02] VITALS: O2SAT 97
[2016-03-02] MEDS: NSS + 20MEQ KCL 1000ML 1,000 ML IV SCH ×2 (03:51→13:04)
[2016-03-02] MEDS: HEPARIN SOD 5000 UNIT/0.5 ML CARP SQ SCH ×3 (06:10→20:22)
[2016-03-02] MEDS: LOSARTAN POTASSIUM 50 MG TAB PO SCH (07:35)
[2016-03-02] MEDS: FLUTICASONE/SALMETEROL 250/50 (ADVAIR) 14 PUFF/1 INHALER INH SCH ×2 (07:35→20:20)
[2016-03-02 08:00] VITALS: O2SAT 95
[2016-03-02 08:27] VITALS: BP 156/61; PULSE 87; TEMP 37.2; O2SAT 95
[2016-03-02] MEDS: INSULIN ASPART 100 UNITS/ML 3 ML PEN SC SCH ×4 (08:50→20:26)
[2016-03-02 15:38] VITALS: BP 151/55; PULSE 91; TEMP 37.1; O2SAT 94
--- NOTE | 2016-03-02 16:40 | Progress Note ---
Internal Med Progress Note Date of Service: Mar 02, 2016. Provider Documentation: SUBJECTIVE: Patient is sitting in the chair and family is at bedside. She has been uncomfortable intermittently at times due to abdominal pain/discomfort. Feels nausea but has not vomited. No SOB.Has been going to bathroom as gets the urge for BM and ddi have 2 BMs since morning. OBJECTIVE: Vital Signs-as noted below Examination: General Appearance: Alert/Awake in some distress. HEENT: Normocephalic, Eyes, Ears, Nose & Throat are normal looking. Neck: Supple, Midline trachea, Respiratory/Chest: lungs clear, normal breath sounds, no respiratory distress, no accessory muscle use Cardiovascular: regular rate, rhythm, no edema, no murmur Abdomen: Distended, Tympanic, BS present, Pain on deep palpation. Extremities: normal inspection, no pedal edema Lab data as noted below. ASSESSMENT & PLAN: Abdominal Pain: Admitted with nausea/vomiting & likely Viral Gastroenteritis -Abdominal/pelvic CT sigmoid diverticulosis, pancreatic duct dilatation with new ?? mass, renal cysts -C. Diff is negative -Stool cultures are pending -Changed to Full liquid -Zofran as needed for nausea/vomiting. -Requested GI consult for the new findings in pancreas -Ordered Abdominal X-Ray Ambulatory Dysfunction: At baseline, supposed to use walker, but does not use this much -PT/OT have been following the patient -As per daughter, they would like short course of rehab -Discharge planning eval - patient lives alone, short rehab may be needed Hypokalemia: Resolved. From GI loss due to diarrhea Diabetes: Diet controlled -Insulin sliding scale coverage Breast CA with bone mets: S/p right mastectomy. Bone mets asymptomatic per family -Holding tamoxifen during hospitalization Chronic Skin Irritation: Chronic prednisone use; q2days Hypertension: BP is controlled, continue Cozaar -Holding Lasix for now due to dehydration COPD: Clinically stable. -Continue home Advair and PRN neb -Continue chronic 2 liters NC HS DVT Prophylaxis: Sq Heparin. FULL CODE Disposition: Pending. Vital Signs: Date Time Temp Pulse Resp B/P Pulse Ox O2 Delivery O2 Flow Rate FiO2 03/02/16 15:38 37.1 91 20 151/55 94 Nasal Cannula 3.0 03/02/16 08:27 37.2 87 20 156/61 95 03/02/16 08:00 95 Nasal Cannula 2.0 03/02/16 00:00 97 Nasal Cannula 2.0 03/01/16 23:45 36.5 76 18 121/54 95 2.0 03/01/16 17:10 Nasal Cannula 2.0 Lab Results: Results Past 24 Hours Test 03/01/16 19:56 03/02/16 07:07 03/02/16 11:10 03/02/16 16:11 Range/Units Bedside Glucose 119 125 132 113 70-90 mg/dl
--- NOTE | 2016-03-02 17:45 | DIAGNOSTIC IMAGING REPORT ---
PA CHEST RADIOGRAPH AND UPRIGHT AND SUPINE AP RADIOGRAPHS OF THE ABDOMEN CLINICAL HISTORY: Abdominal distention. COMPARISON STUDY: Chest radiograph December 22, [address] of the abdomen and pelvis February 29, 2016. FINDINGS: There are right axillary surgical clips and a left subclavian [id number]. No pneumothorax is present. There is no evidence of pulmonary edema. Linear left midlung opacity is suggestive of atelectasis or scarring. Note is made of suspected trace bilateral pleural effusions. There is no free air. There is no evidence for a bowel obstruction. IMPRESSION: 1. No free air or evidence of bowel obstruction. 2. Small bilateral pleural effusions, left larger than right. 3. Stable cardiomegaly. No evidence of pulmonary edema. Electronically signed by: Vijay Brand M.D. 03/02/2016 5:43 PM Dictated Date/Time: 03/02/2016 5:42 PM
[2016-03-02] MEDS: LACTOBACILLUS ACIDOPHILUS (FLORANEX) TAB PO SCH (18:44)
[2016-03-02] MEDS ORDERED: FUROSEMIDE INJ 20 MG in SYRINGE 0 ML IV ONE (19:30)
[2016-03-02 20:15] VITALS: BP 127/55; PULSE 75
[2016-03-02] MEDS: LORAZEPAM 1 MG TAB PO SCH (20:20)
[2016-03-02] MEDS: SERTRALINE HCL 100 MG TAB PO SCH (20:23)
[2016-03-02 22:59] VITALS: BP 137/66; PULSE 78; TEMP 36.8; O2SAT 93
[2016-03-03 06:32] VITALS: Ht 154.9 cm; Wt 73.3 kg
[2016-03-03] MEDS: HEPARIN SOD 5000 UNIT/0.5 ML CARP SQ SCH ×3 (06:38→22:17)
[2016-03-03 06:48] VITALS: BP 162/84; PULSE 81; TEMP 36.9; O2SAT 96
[2016-03-03 07:49] LABS: BUN/CREATININE RATIO 13.4 (10-20); CALCIUM 7.7 mg/dl (8.5-10.1); CREATININE 0.51 mg/dl (0.60-1.20); MAGNESIUM 2.1 mg/dl (1.8-2.4); POTASSIUM 3.7 mmol/L (3.5-5.1)
[2016-03-03 07:51] LABS: ALB/GLOB RATIO 0.9 (0.9-2)
[2016-03-03] MEDS: INSULIN ASPART 100 UNITS/ML 3 ML PEN SC SCH ×4 (08:06→22:17)
[2016-03-03] MEDS: LACTOBACILLUS ACIDOPHILUS (FLORANEX) TAB PO SCH ×3 (08:07→18:03)
[2016-03-03] MEDS: LOSARTAN POTASSIUM 50 MG TAB PO SCH (08:07)
[2016-03-03] MEDS: FLUTICASONE/SALMETEROL 250/50 (ADVAIR) 14 PUFF/1 INHALER INH SCH ×2 (08:07→22:13)
[2016-03-03] MEDS: ONDANSETRON INJ 2 MG/ML 2 ML VIAL IV SCH ×2 (11:41→22:19)
--- NOTE | 2016-03-03 12:24 | Gastrointestinal Consultation ---
Gastrointestinal Consultation Date of Consultation: Mar 03, 2016 Attending Physician: Steve Cole Consulting Physician: Hector Ricketts Reason for Consultation: Pancreas mass History of Present Illness Patient is a 85 year old female w PMHx of COPD, HTN, DM II, breast ca w bone mets, progressive aphasia, hx of possible CVA who presented to ED w c/o n/v, diarrhea and weight loss of 8 lbs in last 2 weeks. GI is currently consulted for incidental finding of pancreas tail cystic lesion of 26mm, pancreas body cystic lesion of 13mm with calcifications in her abd/pelvis CT. In reviewing of pt's chart, she in fact had been referred to GI clinic last year in September, seen by myself for the pancreas tail cystic lesion found incidentally in CT chest. At that point, family and pt are agreeable on EUS evaluation. This was scheduled on 10/02/16 but pt had cancelled due to scheduling reasons. Currently pt states diarrhea has resolved. Cdiff and Cx negative. She is still having nausea, no vomiting. She hasn't received any Zofran since admission. She is only on CL diet. Her LFTs are unremarkable except Tbili 2.1, Lipase 302. Past Medical/Surgical History Medical Problems: (1) Diarrhea Status: Acute (2) Frequent falls Status: Acute (3) Precordial chest pain Status: Acute (4) Weakness Status: Acute Past Medical History: See above. Past Surgical History: Mastectomy Appendectomy Hysterectomy Cataract surgery L knee replacement Family History Cancer Diabetes mellitus Gallbladder disease Heart disease Hypertension Social History Smoking Status: Former Smoker Alcohol Use: none Marital Status: Housing Status: lives alone Occupation Status: retired Allergies Coded Allergies: Amoxicillin (Verified Allergy, Mild, ITCHING, 02/29/16) Colchicine (Verified Allergy, Mild, RASH ITCHING, 02/29/16) Dimenhydrinate (Verified Allergy, Mild, ITCHING, 02/29/16) Homatropine (Verified Allergy, Mild, ITCHING, 02/29/16) Hydrocodone (Verified Allergy, Mild, ITCHING, 02/29/16) Hydroxyzine (Verified Allergy, Mild, ITCHING, 02/29/16) Meperidine (Verified Allergy, Mild, RASH, 02/29/16) Morphine (Verified Allergy, Mild, ITCHING, 02/29/16) Opioid Analgesics (Unverified Allergy, Mild, RASH ITCHING, 02/29/16) Allopurinol (Verified Allergy, Unknown, RASH, 02/29/16) ROSALIA Inhibitors (Unverified Adverse Reaction, Mild, COUGH, 02/29/16) Atorvastatin (Unverified Adverse Reaction, Mild, BONE PAIN, 02/29/16) Gabapentin (Unverified Adverse Reaction, Mild, FATIGUE, 02/29/16) Current Medications Home Meds and Scripts Medications Dose Route/Sig Max Daily Dose Days Date Category Dose Instructions Aristocort 0.1% (Triamcinolone Acet) 90 Appln/30 Gm Cr 1 Appln EXT BID PRN 02/29/16 Reported Sarna (Camphor & Menthol) 1 Lot Lot 1 Appln EXT UD 02/29/16 Reported Miralax (Polyethylene) 17 Gm Pow 17 Mg PO DAILY PRN 02/29/16 Reported Zofran (Ondansetron HCl) 4 Mg Tab 4 Mg PO Q6 PRN 02/29/16 Reported Lotrimin Af (Clotrimazole (Topical)) 1 % Cre 1 Appln TOP BID PRN 7 02/29/16 Reported Robitussin (Guaifenesin) 100 Mg/5 Ml Chrissy 4 Ml PO Q4H PRN 02/29/16 Reported Ventolin Hfa (Albuterol) 60 Puffs/5400 Mcg Aers 2 Puff INH Q4 PRN 02/29/16 Reported Nolvadex (Tamoxifen Citrate) 20 Mg Tab 20 Mg PO DAILY 01/03/16 Reported Betamethasone Dipropionat (Betamethasone Dip) 135 Appln/45 Gm Cr 1 Dose TOP DAILY PRN 09/15/15 Reported Tessalon Perles (Benzonatate) 100 Mg Cap 1 Cap PO TID PRN 09/15/15 Reported Faslodex (Fulvestrant) 250 Mg/5 Ml Inj 250 Mg IM Q4WK 12/22/14 Reported Prednisone 5 Mg Tab 5 Mg PO Q2D 12/22/14 Reported Lotrimin 1% (Clotrimazole) 90 Appln/30 Gm Cr 1 Appln TOP BID 02/05/14 Reported Temovate 0.05% (Clobetasol Propionate) Cr 1 Appln EXT BID PRN 02/05/14 Reported Vitamin C (Ascorbic Acid) 500 Mg Tab 1,000 Mg PO QAM 02/05/14 Reported Vitamin D (Cholecalciferol) 1,000 Inter.unit Tab 1,000 Inter.unit PO QAM 02/05/14 Reported Advair Diskus 250-50 Mcg/Dose (Fluticasone Prop/Salmeterol) 14 Puff/1 Inhaler Aerp 1 Puff INH BID 02/05/14 Reported Lasix (Furosemide) 40 Mg Tab 20 Mg PO QAM 02/05/14 Reported Oxygen Gas 2 Liters NA CONTINOUS 03/23/12 Reported Ventolin 0.083% Soln * (Albuterol Sulfate) Nebu 1 Treatment INH Q6HR PRN 06/15/10 Reported PRN SHORTNESS OF BREATH/WHEEZING Tylenol (Acetaminophen) 325 Mg Tab 650 Mg PO Q6HR PRN 03/06/09 Reported Ativan * (Lorazepam) 1 Mg Tab 1 Mg PO DAILY 04/05/07 Reported Cozaar * (Losartan Potassium) 100 Mg Tab 100 Mg PO QAM 04/05/07 Reported Zoloft (Sertraline HCl) 100 Mg Tab 100 Mg PO HS 04/05/07 Reported Review of Systems Constitutional: No chills, No fever Respiratory: No cough, No shortness of breath Cardiac: No chest pain Abdomen: + nausea, No diarrhea, No pain, No vomiting Neuro: + problem reported (Pt has aphasia) Physical Exam Date Time Temp Pulse Resp B/P Pulse Ox O2 Delivery O2 Flow Rate FiO2 03/03/16 08:00 Nasal Cannula 2.0 Humidified Oxygen 03/03/16 06:48 36.9 81 18 162/84 96 Nasal Cannula 2.0 Humidified Oxygen 03/03/16 01:22 Nasal Cannula 2.0 03/02/16 22:59 36.8 78 18 137/66 93 Nasal Cannula 2.0 Humidified Oxygen 03/02/16 20:15 75 127/55 03/02/16 16:00 Nasal Cannula 2.0 03/02/16 15:38 37.1 91 20 151/55 94 Nasal Cannula 3.0 General Appearance: no apparent distress, + obese Eyes: normal inspection, PERRL, EOMI Neck: supple, no JVD, trachea midline Respiratory/Chest: no respiratory distress, no accessory muscle use, + decreased breath sounds Cardiovascular: regular rate, rhythm, no gallop, no murmur Abdomen: normal bowel sounds, non tender, soft Extremities: normal inspection, no pedal edema, no calf tenderness Neurologic/Psych: + pertinent finding (Oriented to self and place; she sometimes will nod and say "no" and vice versa. ) Skin: normal color, no jaundice, no rash Laboratory Results Last 24 Hours Test 03/02/16 16:11 03/02/16 20:16 03/03/16 06:35 03/03/16 07:29 Bedside Glucose 113 mg/dl 166 mg/dl 120 mg/dl Sodium Level 143 mmol/L Potassium Level 3.7 mmol/L Chloride Level 108 mmol/L Carbon Dioxide Level 27 mmol/L Anion Gap 8.0 mmol/L Blood Urea Nitrogen 7 mg/dl Creatinine 0.51 mg/dl Est Creatinine Clear Calc Drug Dose 76.5 ml/min Estimated GFR () 103.1 Estimated GFR (Non- 88.9 BUN/Creatinine Ratio 13.4 Random Glucose 122 mg/dl Calcium Level 7.7 mg/dl Magnesium Level 2.1 mg/dl Total Bilirubin 0.3 mg/dl Aspartate Amino Transf (AST/SGOT) 18 U/L Alanine Aminotransferase (ALT/SGPT) 32 U/L Alkaline Phosphatase 35 U/L Total Protein 5.6 gm/dl Albumin 2.7 gm/dl Globulin 2.9 gm/dl Albumin/Globulin Ratio 0.9 Test 03/03/16 11:34 Bedside Glucose 162 mg/dl Impression Patient is a 85 year old female seen for pancreas cystic lesions on body and tail incidentally found in CT abd/pelvis done for n/v, diarrhea symptoms. She also has associated 8lbs weight loss recently. Her diarrhea has resolved though still having some nausea w/o vomiting. She had cancelled her EUS scheduled on for pancreas cyst eval. Plan - Obtain CA 19-9 - Scheduled Zofran 4mg IV q8 hours - Discussed again utility of EUS w pancreas cyst aspiration eval w pt, her daughter Irene, including risks vs benefits of the procedure. Pt and family will discuss together again if pt should undergo this procedure taking into consideration her age and other medical co-morbidities. Will touch base w them tomorrow and help schedule this if they would like the EUS done. I saw and evaluated the patient with Ms. Guevara. 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 Her nausea and diarrhea seem improved since admission. -- recomendation: zofran for nausea patient and family to consider egd / eus for evaluation of the pancreatic cysts Consider RUQ US to screen for gallstones Protonix 40 mg per day
--- NOTE | 2016-03-03 12:46 | Progress Note ---
Internal Med Progress Note Date of Service: Mar 03, 2016. Provider Documentation: SUBJECTIVE: Patient is sitting in the chair and is comfortable.Her nausea and abdominal pain is better now. Had 1-2 BMs overnight. No other new change or complaint. Has been able to ambulate in the hallway with assistance. OBJECTIVE: Vital Signs-as noted below Examination: General Appearance: Alert/Awake in some distress. HEENT: Normocephalic, Eyes, Ears, Nose & Throat are normal looking. Neck: Supple, Midline trachea, Respiratory/Chest: lungs clear, normal breath sounds, no respiratory distress, no accessory muscle use Cardiovascular: regular rate, rhythm, no edema, no murmur Abdomen: Distended, Soft, BS present, No pain on deep palpation. Extremities: normal inspection, no pedal edema Lab data as noted below. ASSESSMENT & PLAN: Abdominal Pain: Admitted with nausea/vomiting & likely Viral Gastroenteritis -Abdominal/pelvic CT sigmoid diverticulosis, pancreatic duct dilatation with new ?? mass, renal cysts -KUB is negative for any Obstruction -C. Diff is negative -Flu screen is negative. -Stool cultures are negative -Changed to Full liquid -Zofran as needed for nausea/vomiting. -Requested GI consult for the new findings in pancreas Ambulatory Dysfunction: At baseline, supposed to use walker, but does not use this much -PT/OT have been following the patient -As per daughter, they would like short course of rehab -Discharge planning eval - patient lives alone, short rehab may be needed Hypokalemia: Resolved. From GI loss due to diarrhea Diabetes: Diet controlled -Insulin sliding scale coverage Breast CA with bone mets: S/p right mastectomy. Bone mets asymptomatic per family -Holding tamoxifen during hospitalization Chronic Skin Irritation: Chronic prednisone use; q2days Hypertension: BP is controlled, continue Cozaar -Holding Lasix for now due to dehydration COPD: Clinically stable. -Continue home Advair and PRN neb -Continue chronic 2 liters NC HS DVT Prophylaxis: Sq Heparin. FULL CODE Disposition: Pending.Discussed with case fitter. Vital Signs: Date Time Temp Pulse Resp B/P Pulse Ox O2 Delivery O2 Flow Rate FiO2 03/03/16 08:00 Nasal Cannula 2.0 Humidified Oxygen 03/03/16 06:48 36.9 81 18 162/84 96 Nasal Cannula 2.0 Humidified Oxygen 03/03/16 01:22 Nasal Cannula 2.0 03/02/16 22:59 36.8 78 18 137/66 93 Nasal Cannula 2.0 Humidified Oxygen 03/02/16 20:15 75 127/55 03/02/16 16:00 Nasal Cannula 2.0 03/02/16 15:38 37.1 91 20 151/55 94 Nasal Cannula 3.0 Lab Results: Results Past 24 Hours Test 03/02/16 16:11 03/02/16 20:16 03/03/16 06:35 03/03/16 07:29 Range/Units Bedside Glucose 113 166 120 70-90 mg/dl Sodium Level 143 136-145 mmol/L Potassium Level 3.7 3.5-5.1 mmol/L Chloride Level 108 98-107 mmol/L Carbon Dioxide Level 27 21-32 mmol/L Anion Gap 8.0 3-11 mmol/L Blood Urea Nitrogen 7 7-18 mg/dl Creatinine 0.51 0.60-1.20 mg/dl Est Creatinine Clear Calc Drug Dose 76.5 ml/min Estimated GFR () 103.1 Estimated GFR (Non- 88.9 BUN/Creatinine Ratio 13.4 10-20 Random Glucose 122 70-99 mg/dl Calcium Level 7.7 8.5-10.1 mg/dl Magnesium Level 2.1 1.8-2.4 mg/dl Total Bilirubin 0.3 0.2-1 mg/dl Aspartate Amino Transf (AST/SGOT) 18 15-37 U/L Alanine Aminotransferase (ALT/SGPT) 32 12-78 U/L Alkaline Phosphatase 35 45-117 U/L Total Protein 5.6 6.4-8.2 gm/dl Albumin 2.7 3.4-5.0 gm/dl Globulin 2.9 2.5-4.0 gm/dl Albumin/Globulin Ratio 0.9 0.9-2 Test 03/03/16 11:34 Range/Units Bedside Glucose 162 70-90 mg/dl
[2016-03-03] MEDS ORDERED: PANTOprazole SOD 40 MG TAB PO ONE (13:30)
[2016-03-03 16:22] VITALS: O2SAT 96
[2016-03-03] MEDS: LORAZEPAM 1 MG TAB PO SCH (22:13)
[2016-03-03] MEDS: SERTRALINE HCL 100 MG TAB PO SCH (22:14)
[2016-03-03 23:12] VITALS: BP 151/72; PULSE 96; TEMP 36.3; O2SAT 92
[2016-03-04] MEDS: HEPARIN SOD 5000 UNIT/0.5 ML CARP SQ SCH (06:02)
[2016-03-04] MEDS: ONDANSETRON INJ 2 MG/ML 2 ML VIAL IV SCH (06:17)
[2016-03-04 07:25] VITALS: BP 125/72; PULSE 73; TEMP 36.3; O2SAT 97
[2016-03-04] MEDS: LACTOBACILLUS ACIDOPHILUS (FLORANEX) TAB PO SCH ×2 (07:29→12:23)
[2016-03-04] MEDS: FLUTICASONE/SALMETEROL 250/50 (ADVAIR) 14 PUFF/1 INHALER INH SCH (07:29)
[2016-03-04] MEDS: LOSARTAN POTASSIUM 50 MG TAB PO SCH (07:30)
[2016-03-04 07:52] LABS: BASO % 0.4 %; BASO ABS # 0.02 K/uL (0-0.2); COMPLETE YES; HEMATOCRIT 33.9 % (37-47); IG% 4.1 %; LYMPH % 23.6 %; LYMPH ABS # 1.15 K/uL (1.2-3.4); MEAN CELL VOLUME 96.6 fL (80-100); MEAN CORPUSCULAR HEMOGLOBIN 32.5 pg (25-34); MEAN CORPUSCULAR HGB CONC 33.6 g/dl (32-36); MEAN PLATELET VOLUME 9.5 fL (7.4-10.4); NEUT % 60.9 %; PLATELET COUNT 202 K/uL (130-400); RED BLOOD COUNT 3.51 M/uL (4.2-5.4); WHITE BLOOD COUNT 4.88 K/uL (4.8-10.8)
[2016-03-04 08:07] VITALS: BP 130/71; PULSE 89; TEMP 37; O2SAT 92
[2016-03-04 08:17] LABS: BUN/CREATININE RATIO 12.1 (10-20); CALCIUM 7.7 mg/dl (8.5-10.1); CREATININE 0.62 mg/dl (0.60-1.20); POTASSIUM 3.9 mmol/L (3.5-5.1)
[2016-03-04] MEDS ORDERED: PANTOprazole SOD 40 MG TAB PO SCH (09:00)
[2016-03-04] MEDS: INSULIN ASPART 100 UNITS/ML 3 ML PEN SC SCH ×2 (09:04→12:42)
--- NOTE | 2016-03-04 10:17 | Gastroenterology Progress Note ---
Progress Note Date of Service: Mar 04, 2016 Subjective Pt evaluation today including: conversation w/ patient, physical exam, chart review, lab review, review of inpatient medication list Pt up in chair, per RN ate breakfast well w/o s/s of n/v. Pt denies any abd pain , n/v. She has expressive aphasia. Review of Systems Constitutional: No chills, No fever Respiratory: No cough, No shortness of breath Cardiac: No chest pain Abdomen: No nausea, No pain, No vomiting Medications Current Inpatient Medications Medications (Trade) Dose Ordered Sig/Michael Route Start Time Stop Time Status Last Admin Dose Admin Ioversol (Optiray 320) 100 ml UD PRN IV 02/29/16 16:15 03/04/16 16:14 Heparin Sodium (Porcine) (Heparin Sq 5000 Unit/0.5ml) 5,000 unit Q8 SQ 02/29/16 22:00 03/30/16 21:59 03/04/16 06:02 5,000 UNIT Acetaminophen (Tylenol Tab) 650 mg Q4H PRN PO 02/29/16 19:00 03/30/16 18:59 03/02/16 18:43 650 MG Albuterol Sulfate (Ventolin 0.083% 2.5MG/3ML Neb) 2.5 mg QIDR PRN INH 02/29/16 19:30 03/30/16 19:29 Salmeterol Xinafoate/ Fluticasone (Advair Diskus 250/50 Inh) 1 puff BID INH 02/29/16 21:00 03/30/16 20:59 03/04/16 07:29 1 PUFF Lorazepam (Ativan Tab) 1 mg HS PO 02/29/16 21:00 03/30/16 20:59 03/03/16 22:13 1 MG Losartan Potassium (coZAAR TAB) 100 mg QAM PO 03/01/16 09:00 03/31/16 08:59 03/04/16 07:30 100 MG Prednisone (PredniSONE TAB) 5 mg Q2D@0900 PO 03/01/16 09:00 03/31/16 08:59 03/03/16 08:07 5 MG Sertraline HCl (Zoloft Tab) 100 mg HS PO 02/29/16 21:00 03/30/16 20:59 03/03/16 22:14 100 MG Insulin Aspart (novoLOG ASPART) SLIDING SCALE If C... ACHS SC 02/29/16 21:00 03/30/16 20:59 03/04/16 09:04 3 UNITS Glucose (Glucose 40% Gel) 15-30 GRAMS 15 GRAMS... UD PRN PO 02/29/16 19:45 03/30/16 19:44 Glucose (Glucose Chew Tab) 4-8 Tablets 4 Tabl... UD PRN PO 02/29/16 19:45 03/30/16 19:44 Dextrose (Dextrose 50% 50ML Syringe) 25-50ML OF 50% DW IV FOR... UD PRN IV 02/29/16 19:45 03/30/16 19:44 Glucagon (Glucagon Inj) 1 mg UD PRN SQ 02/29/16 19:45 03/30/16 19:44 Miscellaneous (Iv Fluids Completed) 1 ea PRN PRN N/A 02/29/16 19:45 02/28/17 19:44 Lactobacillus Acidophilus (Floranex Tab) 4 tab TIDM PO 03/02/16 17:00 04/01/16 16:59 03/04/16 07:29 4 TAB Pantoprazole Sodium (Protonix Tab) 40 mg QAM PO 03/04/16 09:00 04/03/16 08:59 03/04/16 07:31 40 MG Ondansetron HCl (Zofran Inj) 4 mg Q8 PRN IV 03/04/16 14:00 04/03/16 13:59 UNV Objective Vital Signs Date Time Temp Pulse Resp B/P Pulse Ox O2 Delivery O2 Flow Rate FiO2 03/04/16 08:07 03/04/16 08:00 Nasal Cannula 2.0 03/04/16 07:25 36.3 73 16 125/72 97 03/04/16 00:00 Room Air 03/03/16 23:12 36.3 96 18 151/72 92 Nasal Cannula 2.0 03/03/16 16:22 96 Room Air Physical Exam General Appearance: WD/WN, no apparent distress, + obese Eyes: normal inspection, PERRL, EOMI Neck: supple, no JVD, trachea midline Respiratory/Chest: normal breath sounds, no respiratory distress, no accessory muscle use Cardiovascular: regular rate, rhythm, no gallop, no murmur Abdomen: normal bowel sounds, non tender, soft Extremities: normal inspection, no pedal edema, no calf tenderness Neurologic/Psych: alert, normal mood/affect, + aphasia Skin: normal color, no jaundice, no rash Laboratory Results Last 24 Hours Test 03/03/16 11:34 03/03/16 16:49 03/03/16 19:45 03/04/16 07:09 Bedside Glucose 162 mg/dl 153 mg/dl 162 mg/dl White Blood Count 4.88 K/uL Red Blood Count 3.51 M/uL Hemoglobin 11.4 g/dL Hematocrit 33.9 % Mean Corpuscular Volume 96.6 fL Mean Corpuscular Hemoglobin 32.5 pg Mean Corpuscular Hemoglobin Concent 33.6 g/dl Platelet Count 202 K/uL Mean Platelet Volume 9.5 fL Neutrophils (%) (Auto) 60.9 % Lymphocytes (%) (Auto) 23.6 % Monocytes (%) (Auto) 10.0 % Eosinophils (%) (Auto) 1.0 % Basophils (%) (Auto) 0.4 % Neutrophils # (Auto) 2.97 K/uL Lymphocytes # (Auto) 1.15 K/uL Monocytes # (Auto) 0.49 K/uL Eosinophils # (Auto) 0.05 K/uL Basophils # (Auto) 0.02 K/uL RDW Standard Deviation 49.9 fL RDW Coefficient of Variation 14.1 % Immature Granulocyte % (Auto) 4.1 % Immature Granulocyte # (Auto) 0.20 K/uL Sodium Level 144 mmol/L Potassium Level 3.9 mmol/L Chloride Level 109 mmol/L Carbon Dioxide Level 26 mmol/L Anion Gap 9.0 mmol/L Blood Urea Nitrogen 8 mg/dl Creatinine 0.62 mg/dl Est Creatinine Clear Calc Drug Dose 62.9 ml/min Estimated GFR () 96.6 Estimated GFR (Non- 83.4 BUN/Creatinine Ratio 12.1 Random Glucose 126 mg/dl Calcium Level 7.7 mg/dl Test 03/04/16 07:30 Bedside Glucose 127 mg/dl Assessment and Plan Patient is a 85 year old female seen for pancreas cystic lesions on body and tail incidentally found in CT abd/pelvis done for n/v, diarrhea symptoms. She also has associated 8lbs weight loss recently. Her diarrhea has resolved though still having some nausea w/o vomiting. She had cancelled her EUS scheduled on for pancreas cyst eval. She's feeling better, tolerating breakfast well w/o n/v, abd pain. Diet advanced to AHA, Diabetic food. Plan - Obtain CA 19-9 -> pending - Continue Protonix 40mg daily; Zofran 4mg q8hrs prn n/v - May consider RUQ u/s to eval for biliary pathology if n/v continues. - Discussed again utility of EUS w pancreas cyst aspiration eval w pt, her daughter Irene, including risks vs benefits of the procedure. Pt and family will discuss together again if pt should undergo this procedure taking into consideration her age and other medical co-morbidities. Will touch base w them tomorrow and help schedule this if they would like the EUS done. -> spoke w Irene today who said that she is leaning towards no further evaluation via EUS though wants to discuss again w the rest of the family. Please call the GI team if they decide to have EUS and we can help schedule this procedure. It's a non urgent evaluation which can be done in outpt setting and should not hold up pt' s discharge. I discussed the patient with alphonse Johansen prior to afternoon rounds -- patient to consider OP eus or CT in 6 months
[2016-03-04 12:12] VITALS: PULSE 84; O2SAT 97
--- NOTE | 2016-03-04 12:59 | Progress Note ---
Internal Med Progress Note Date of Service: Mar 04, 2016. Provider Documentation: SUBJECTIVE: Patient is sitting in the chair and is comfortable.Her nausea and abdominal pain is better now. Had 1-2 BMs overnight. No other new change or complaint. Has been able to ambulate in the hallway with assistance. OBJECTIVE: Vital Signs-as noted below Examination: General Appearance: Alert/Awake in some distress. HEENT: Normocephalic, Eyes, Ears, Nose & Throat are normal looking. Neck: Supple, Midline trachea, Respiratory/Chest: lungs clear, normal breath sounds, no respiratory distress, no accessory muscle use Cardiovascular: regular rate, rhythm, no edema, no murmur Abdomen: Distended, Soft, BS present, No pain on deep palpation. Extremities: normal inspection, no pedal edema Lab data as noted below. ASSESSMENT & PLAN: Abdominal Pain: Admitted with nausea/vomiting & likely Viral Gastroenteritis -Abdominal/pelvic CT sigmoid diverticulosis, pancreatic duct dilatation with new ?? mass, renal cysts -KUB is negative for any Obstruction -C. Diff is negative -Flu screen is negative. -Stool cultures are negative -Changed to Full liquid -Zofran as needed for nausea/vomiting. -Requested GI consult for the new findings in pancreas Ambulatory Dysfunction: At baseline, supposed to use walker, but does not use this much -PT/OT have been following the patient -As per daughter, they would like short course of rehab -Discharge planning eval - patient lives alone, short rehab may be needed Hypokalemia: Resolved. From GI loss due to diarrhea Diabetes: Diet controlled -Insulin sliding scale coverage Breast CA with bone mets: S/p right mastectomy. Bone mets asymptomatic per family -Holding tamoxifen during hospitalization Chronic Skin Irritation: Chronic prednisone use; q2days Hypertension: BP is controlled, continue Cozaar -Holding Lasix for now due to dehydration COPD: Clinically stable. -Continue home Advair and PRN neb -Continue chronic 2 liters NC HS DVT Prophylaxis: Sq Heparin. FULL CODE Disposition: Discharge later on today for Rehab. Clinically stable for discharge. Vital Signs: Date Time Temp Pulse Resp B/P Pulse Ox O2 Delivery O2 Flow Rate FiO2 03/04/16 12:12 84 12 97 Nasal Cannula 2.0 03/04/16 08:07 03/04/16 08:00 Nasal Cannula 2.0 03/04/16 07:25 36.3 73 16 125/72 97 1/26/17 00:00 Room Air 03/03/16 23:12 36.3 96 18 151/72 92 Nasal Cannula 2.0 03/03/16 16:22 96 Room Air Lab Results: Results Past 24 Hours Test 03/03/16 16:49 03/03/16 19:45 03/04/16 07:09 03/04/16 07:30 Range/Units Bedside Glucose 153 162 127 70-90 mg/dl White Blood Count 4.88 4.8-10.8 K/uL Red Blood Count 3.51 4.2-5.4 M/uL Hemoglobin 11.4 12.0-16.0 g/dL Hematocrit 33.9 37-47 % Mean Corpuscular Volume 96.6 80-100 fL Mean Corpuscular Hemoglobin 32.5 25-34 pg Mean Corpuscular Hemoglobin Concent 33.6 32-36 g/dl Platelet Count 202 130-400 K/uL Mean Platelet Volume 9.5 7.4-10.4 fL Neutrophils (%) (Auto) 60.9 % Lymphocytes (%) (Auto) 23.6 % Monocytes (%) (Auto) 10.0 % Eosinophils (%) (Auto) 1.0 % Basophils (%) (Auto) 0.4 % Neutrophils # (Auto) 2.97 1.4-6.5 K/uL Lymphocytes # (Auto) 1.15 1.2-3.4 K/uL Monocytes # (Auto) 0.49 0.11-0.59 K/uL Eosinophils # (Auto) 0.05 0-0.5 K/uL Basophils # (Auto) 0.02 0-0.2 K/uL RDW Standard Deviation 49.9 36.4-46.3 fL RDW Coefficient of Variation 14.1 11.5-14.5 % Immature Granulocyte % (Auto) 4.1 % Immature Granulocyte # (Auto) 0.20 0.00-0.02 K/uL Sodium Level 144 136-145 mmol/L Potassium Level 3.9 3.5-5.1 mmol/L Chloride Level 109 98-107 mmol/L Carbon Dioxide Level 26 21-32 mmol/L Anion Gap 9.0 3-11 mmol/L Blood Urea Nitrogen 8 7-18 mg/dl Creatinine 0.62 0.60-1.20 mg/dl Est Creatinine Clear Calc Drug Dose 62.9 ml/min Estimated GFR () 96.6 Estimated GFR (Non- 83.4 BUN/Creatinine Ratio 12.1 10-20 Random Glucose 126 70-99 mg/dl Calcium Level 7.7 8.5-10.1 mg/dl Test 03/04/16 11:25 Range/Units Bedside Glucose 159 70-90 mg/dl
--- NOTE | 2016-03-04 13:04 | Discharge Instructions ---
Discharge Instructions Admission Reason for Admission: Generalized Weakness Discharge Discharge Diagnosis / Problem: Generalized Weakness Discharge Goals Goal(s): Decrease discomfort, Improve function, Increase independence, Improve disease control, Improve nutritional status, Learn about illness, Diagnostic testing, Therapeutic intervention Activity Recommendations Activity Limitations: per Instructions/Follow-up section (As per PT/OT with assistance) Shower/Bathe: no limitations . Instructions / Follow-Up Instructions / Follow-Up Take Fat Free Food. Follow up with PCP within one week after discharge from the Rehab facility. Current Hospital Diet Patient's current hospital diet: Low Sodium Diet (2gm Na), Diabetes Type 2 Diet Discharge Diet Recommended Diet: Diabetes Type 2 Diet (Fat Free Diet) Pending Studies Studies pending at discharge: no Medical Emergencies . Who to Call and When: Medical Emergencies: If at any time you feel your situation is an emergency, please call 911 immediately. . Non-Emergent Contact Non-Emergency issues call your: Primary Care Provider . . "Provider Documentation" section prepared by Steve Cole. VTE Core Measure Inpt VTE Proph given/why not?: Unfractionated heparin SQ
--- NOTE | 2016-03-04 13:09 | Discharge Summary ---
Discharge Summary Admission Date: Feb 29, 2016 at 19:00 Discharge Date: Mar 04, 2016 Discharge Disposition: detention facility Principal Diagnosis: Abdominal Pain Hypokalemia (Resolved) Nausea/Vomiting (Resolved) Secondary Diagnoses/Problems: Diabetes Type II Breast Ca with bony mets Chronic Skin Irritation Hypertension History COPD Procedures: CT ABD/PELVIS IV CONTRAST ONLY IMPRESSION: 1. No evidence of bowel obstruction. No evidence of free air. 2. Sigmoid diverticulosis with wall thickening, likely secondary to peridiverticular muscular hypertrophy 3. Bilateral renal cysts including a relatively stable complex 24 mm upper pole left renal cyst containing rim calcification 4. Interval development of pancreatic ductal dilatation and 2 cystic pancreatic lesions measuring 13 mm and 26 mm respectively. These could represent IPMNs, or other cystic pancreatic lesions. GI consultation should be considered 5. Interval development of nonspecific small hypodense splenic lesions (tiny infarcts versus other etiologies) Vaccinations: NONE Consultations: Gastroenterology Pending Studies/Follow-Up: Needs to follow up with GI as outpatient regarding the pancreatic work up Medication Reconciliation Continued Medications: Acetaminophen (Tylenol) 325 Mg Tab 650 MG PO Q6HR PRN Albuterol (Ventolin Hfa) 60 Puffs/5400 Mcg Aers 2 PUFF INH Q4 PRN for SOB/Wheezing Albuterol 0.083% Soln (Ventolin 0.083% Soln *) Nebu 1 TREATMENT INH Q6HR PRN, #1 BOX 0 Refills PRN SHORTNESS OF BREATH/WHEEZING Ascorbic Acid (Vitamin C) 500 Mg Tab 1000 MG PO QAM Benzonatate (Tessalon Perles) 100 Mg Cap 1 CAP PO TID PRN for Cough, CAP Betamethasone Dip (Betamethasone Dipropionat) 135 Appln/45 Gm Cr 1 DOSE TOP DAILY PRN for PRN Camphor & Menthol (Sarna) 1 Lot Lot 1 APPLN EXT UD Cholecalciferol (Vitamin D) 1,000 Inter.unit Tab 1000 INTER.UNIT PO QAM, TAB Clobetasol Propionate 0.05% (Temovate 0.05%) Cr 1 APPLN EXT BID PRN for skin impairment, CR Clotrimazole (Lotrimin 1%) 90 Appln/30 Gm Cr 1 APPLN TOP BID for PRN Clotrimazole (Topical) (Lotrimin Af) 1 % Cre 1 APPLN TOP BID PRN for skin impairment for 7 Days, #24 GM 1 Refill Fluticasone Prop/Salmeterol (Advair Diskus 250-50 Mcg/Dose) 14 Puff/1 Inhaler Aerp 1 PUFF INH BID Fulvestrant (Faslodex) 250 Mg/5 Ml Inj 250 MG IM Q4WK Guaifenesin (Robitussin) 100 Mg/5 Ml Chrissy 4 ML PO Q4H PRN for Cough Lorazepam (Ativan *) 1 Mg Tab 1 MG PO DAILY for Anxiety, 0 Refills Losartan Potassium (Cozaar *) 100 Mg Tab 100 MG PO QAM, 0 Refills Ondansetron Hcl (Zofran) 4 Mg Tab 4 MG PO Q6 PRN for Nausea, TAB Oxygen (Oxygen) Gas 2 LITERS NA CONTINOUS Polyethylene (Miralax) 17 Gm Pow 17 MG PO DAILY PRN for Constipation Prednisone (Prednisone) 5 Mg Tab 5 MG PO Q2D, TAB Sertraline (Zoloft) 100 Mg Tab 100 MG PO HS, 0 Refills Tamoxifen (Nolvadex) 20 Mg Tab 20 MG PO DAILY, TAB Triamcinolone Acet (Aristocort 0.1%) 90 Appln/30 Gm Cr 1 APPLN EXT BID PRN for skin impairment Discontinued Medications: Furosemide (Lasix) 40 Mg Tab 20 MG PO QAM, TAB Admission Information HPI (per Admitting provider): This is an 85 year old female with PMH of COPD, HTN, DM type 2 diet controlled, breast cancer with bone metastasis, primary progressive aphasia, questionable history of CVA, who presents to the ED for nausea, diarrhea, and poor PO intake. History obtained from family due to patient's aphasia. Starting 1.5 weeks ago patient became ill with nausea and poor PO intake. Denies vomiting. She was seen in clinic and prescribed Zofran which did not help. Then starting 2 days ago she has diarrhea which worsened today. Family reports large amount of foul smelling liquid stool with incontinence. They did not notice any blood. Family feels she may be dizzy due to poor PO intake. Patient has lost 8 lb in past few weeks. Family states she is always cold and has chronic rhinorrhea. Family denies any fevers, apparent chest pain, SOB. Family reported to ER casework specialist that patient has been generally weak and had multiple falls in past month. Patient was on antibiotics in late January for URI symptoms. Physical Exam (per Admitting): General Appearance: WD/WN, no apparent distress Head: normocephalic, atraumatic Eyes: normal inspection, PERRL, EOMI ENT: hearing grossly normal, pharynx normal Neck: supple, trachea midline Respiratory/Chest: lungs clear, normal breath sounds, no respiratory distress, no accessory muscle use Cardiovascular: regular rate, rhythm, no murmur Abdomen/GI: normal bowel sounds, soft, + pertinent finding (diffuse tenderness. no guarding/ rigidity. ) Extremities/Musculoskelatal: normal inspection, no pedal edema Neurologic/Psych: alert, normal mood/affect, + pertinent finding (chronic aphasia. does answer yes or no, but not reliable to answer questions correctly as per family) Skin: normal color, warm/dry Hospital Course Abdominal Pain: Admitted with nausea/vomiting & likely Viral Gastroenteritis -Abdominal/pelvic CT sigmoid diverticulosis, pancreatic duct dilatation with new ?? mass, renal cysts -KUB is negative for any Obstruction -C. Diff is negative -Flu screen is negative. -Stool cultures are negative -Changed to Full liquid -Zofran as needed for nausea/vomiting. -Requested GI consult for the new findings in pancreas Ambulatory Dysfunction: At baseline, supposed to use walker, but does not use this much -PT/OT have been following the patient -As per daughter, they would like short course of rehab -Discharge planning eval - patient lives alone, short rehab may be needed Hypokalemia: Resolved. From GI loss due to diarrhea Diabetes: Diet controlled -Insulin sliding scale coverage Breast CA with bone mets: S/p right mastectomy. Bone mets asymptomatic per family -Holding tamoxifen during hospitalization Chronic Skin Irritation: Chronic prednisone use; q2days Hypertension: BP is controlled, continue Cozaar -Holding Lasix for now due to dehydration COPD: Clinically stable. -Continue home Advair and PRN neb -Continue chronic 2 liters NC HS DVT Prophylaxis: Sq Heparin. FULL CODE Disposition: Discharge later on today for Rehab. Clinically stable for discharge. Total time spent on discharge = 42 minutes. This includes examination of the patient, discharge planning, medication reconciliation, and communication with other providers. Discharge Instructions Discharge Goals Goal(s): Decrease discomfort, Improve function, Increase independence, Improve disease control, Improve nutritional status, Learn about illness, Diagnostic testing, Therapeutic intervention Activity Recommendations Activity Limitations: per Instructions/Follow-up section (As per PT/OT with assistance) Shower/Bathe: no limitations . Instructions / Follow-Up Instructions / Follow-Up Take Fat Free Food. Follow up with PCP within one week after discharge from the Rehab facility. Current Hospital Diet Patient's current hospital diet: Low Sodium Diet (2gm Na), Diabetes Type 2 Diet Discharge Diet Recommended Diet: Diabetes Type 2 Diet (Fat Free Diet) Additional Copies To Humberto Ibanez D.O.
[2016-03-04 13:14] VITALS: BP 125/72; PULSE 84; TEMP 36.3; O2SAT 97
[2016-03-04] MEDS ORDERED: ONDANSETRON INJ 2 MG/ML 2 ML VIAL IV PRN (14:00)
== END 2016-03-04 13:47 | DRG 392 ==
LOC: ENRESERVDT → ENRESERVTM → C.EDB 15:45 → C.MS2W 19:00 → EDBEDREQ 19:20
PROVIDERS: ADMIT Internal Medicine; ATTEND Emergency Medicine
DX: A08.4 Viral intestinal infection, unspecified (principal); C79.51 Secondary malignant neoplasm of bone; K86.2 Cyst of pancreas; E87.6 Hypokalemia; L98.9 Disorder of the skin and subcutaneous tissue, unspecified; R26.2 Difficulty in walking, not elsewhere classified; E86.0 Dehydration; G31.01 Pick's disease; F02.80 Dementia in other diseases classified elsewhere, unspecified severity, without behavioral disturbance, psychotic disturbance, mood disturbance, and anxiety; K57.30 Diverticulosis of large intestine without perforation or abscess without bleeding; N28.1 Cyst of kidney, acquired; K86.89 Other specified diseases of pancreas; D73.89 Other diseases of spleen; J44.9 Chronic obstructive pulmonary disease, unspecified; I10 Essential (primary) hypertension; F32.9 Major depressive disorder, single episode, unspecified; E11.9 Type 2 diabetes mellitus without complications; E66.9 Obesity, unspecified; Z51.81 Encounter for therapeutic drug level monitoring; Z79.899 Other long term (current) drug therapy; Z79.52 Long term (current) use of systemic steroids; Z99.81 Dependence on supplemental oxygen; Z91.81 History of falling; Z86.19 Personal history of other infectious and parasitic diseases; Z85.3 Personal history of malignant neoplasm of breast; Z90.11 Acquired absence of right breast and nipple; Z92.21 Personal history of antineoplastic chemotherapy; Z92.3 Personal history of irradiation; Z68.30 Body mass index [BMI] 30.0-30.9, adult; Z87.891 Personal history of nicotine dependence; Z83.3 Family history of diabetes mellitus; Z82.49 Family history of ischemic heart disease and other diseases of the circulatory system; Z83.79 Family history of other diseases of the digestive system; Z80.9 Family history of malignant neoplasm, unspecified

== ENCOUNTER 2016-05-20 09:37 | Emergency (ER) | payer OTHER ==
[~2016-05-20] VITALS: Ht 162.6 cm; Wt 75.0 kg
[~2016-05-20 09:37] MED LIST changes: -ALBU1AER9 INH; +CAMPLOT10 EXT; +CLOT-40 TOP; -FURO40TA3 PO; -MELO7.5T5 PO; +MRLP17X PO; +ONDA4TAB46 PO; +PRVHFAIN INH; +RBTUDL5 PO; -TAMO20TA47 PO; +TAMO20TA9 PO; +TRMCR130WC EXT
[2016-05-20 09:38] VITALS: TEMP 36.6; Ht 162.6 cm; Wt 75.0 kg
[2016-05-20] MEDS ORDERED: LOSA1TAB38 PO (10:49)
[2016-05-20] MEDS ORDERED: CLBCRM30 EXT (10:49)
[2016-05-20] MEDS ORDERED: CHOL1000 PO (10:49)
[2016-05-20] MEDS ORDERED: ZNTT/150 PO (10:49)
[2016-05-20] MEDS ORDERED: LORA1TAB13 PO (10:49)
[2016-05-20] MEDS ORDERED: ALBINS/ INH (10:49)
--- NOTE | 2016-05-20 12:04 | EMERGENCY ROOM VISIT NOTE ---
History Report prepared by Madeliene: Barbara Watson Under the Supervision of: Dr. Rodrigo Block D.O. First contact with patient: 09:42 Chief Complaint: ILLNESS Stated Complaint: HEAD BLEED History of Present Illness The patient is an 85 year old female who presents to the Emergency Room with complaints of a head bleed which was discovered this morning. She was brought to the ED by EMS. The patient has primary progressive aphasia. The patient's daughter provides the history. The patient was getting an MRI this morning when they discovered blood between her brain and her skull. She was getting an MRI because she has been getting worse with her communication for the past 2 weeks. She has been getting more uncoordinated and increasingly weak in her right leg. Source of History: family Onset: this morning Position: head Quality: other (bleed) Associated Symptoms: + weakness (right leg) Note: Family reports worsening aphasia, coordination. Review of Systems See HPI for pertinent positives & negatives. A total of 10 systems reviewed and were otherwise negative. Past Medical & Surgical Medical Problems: (1) Breast cancer (2) Chest pain (3) COPD (chronic obstructive pulmonary disease) (4) Depressive disorder (5) DM (diabetes mellitus) (6) Dyslipidemia (7) Generalized weakness (8) HTN (hypertension) (9) Lung nodules (10) Osteoarthritis (11) Osteoporosis (12) Port catheter in place Surgical Problems: (1) H/O mastectomy (2) H/O: hysterectomy (3) History of appendectomy (4) History of cataract surgery (5) S/P knee replacement Family History Cancer Diabetes mellitus Gallbladder disease Heart disease Hypertension Social History Smoking Status: Never Smoker Alcohol Use: none Marital Status: Housing Status: lives alone Occupation Status: retired Current/Historical Medications Scheduled Acetaminophen (Tylenol), 650 MG PO Q6HR PRN Ascorbic Acid (Vitamin C), 1,000 MG PO QAM Camphor & Menthol (Sarna), 1 APPLN EXT UD Cholecalciferol (Vitamin D3), 1 TAB PO DAILY Clotrimazole (Lotrimin 1%), 1 APPLN TOP BID Fluticasone Prop/Salmeterol (Advair Diskus 250-50 Mcg/Dose), 1 PUFF INH BID Fulvestrant (Faslodex), 250 MG IM Q4WK Losartan Potassium (Cozaar), 100 MG PO DAILY Oxygen (Oxygen), 2 LITERS NA CONTINOUS Prednisone (Prednisone), 5 MG PO Q2D Ranitidine (Zantac), 150 MG PO BID Sertraline (Zoloft), 100 MG PO HS Tamoxifen (Nolvadex), 20 MG PO DAILY Scheduled PRN Albuterol (Ventolin Hfa), 2 PUFF INH Q4 PRN for SOB/Wheezing Albuterol Sulf (Proventil 0.083% 2.5MG/3ML), 2.5 MG INH QID PRN for SOB/Wheezing Benzonatate (Tessalon Perles), 1 CAP PO TID PRN for Cough Betamethasone Dip (Betamethasone Dipropionat), 1 DOSE TOP DAILY PRN for PRN Clobetasol Propionate (Clobetasol Propionate Cream 0.05%), 1 APPLN EXT BID PRN for Affected Skin Folds Clotrimazole (Topical) (Lotrimin Af), 1 APPLN TOP BID PRN for skin impairment Guaifenesin (Robitussin), 4 ML PO Q4H PRN for Cough Lorazepam (Lorazepam), 1 TAB PO for Anxiety Ondansetron Hcl (Zofran), 4 MG PO Q6 PRN for Nausea Polyethylene (Miralax), 17 MG PO DAILY PRN for Constipation Triamcinolone Acet (Aristocort 0.1%), 1 APPLN EXT BID PRN for skin impairment Allergies Coded Allergies: Loratadine (Unverified Allergy, Severe, ITCHING, 05/20/16) Amoxicillin (Verified Allergy, Mild, ITCHING, 05/20/16) Colchicine (Verified Allergy, Mild, RASH ITCHING, 05/20/16) Dimenhydrinate (Verified Allergy, Mild, ITCHING, 05/20/16) Homatropine (Verified Allergy, Mild, ITCHING, 05/20/16) Hydrocodone (Verified Allergy, Mild, ITCHING, 05/20/16) Hydroxyzine (Verified Allergy, Mild, ITCHING, 05/20/16) Meperidine (Verified Allergy, Mild, RASH, 05/20/16) Morphine (Verified Allergy, Mild, ITCHING, 05/20/16) Opioid Analgesics (Unverified Allergy, Mild, RASH ITCHING, 05/20/16) Allopurinol (Verified Allergy, Unknown, RASH, 05/20/16) ROSALIA Inhibitors (Unverified Adverse Reaction, Mild, COUGH, 05/20/16) Atorvastatin (Unverified Adverse Reaction, Mild, BONE PAIN, 05/20/16) Gabapentin (Unverified Adverse Reaction, Mild, FATIGUE, 05/20/16) Physical Exam Vital Signs Date Time Temp Pulse Resp B/P Pulse Ox O2 Delivery O2 Flow Rate FiO2 05/20/16 11:08 74 19 164/78 95 Room Air 05/20/16 10:10 68 05/20/16 10:08 67 22 171/91 95 Room Air 05/20/16 09:38 36.6 71 16 202/123 93 Room Air Physical Exam VITAL SIGNS: were reviewed as above. GENERAL:Non-toxic in appearance. SKIN: Warm dry and pink. HEAD: Normocephalic and atraumatic. OROPHARYNX: Is clear and moist NECK: Supple without lymphadenopathy or meningismus. LUNGS: clear. HEART: Regular rate and rhythm. ABDOMEN: Soft and nontender. EXTREMITIES: Warm and well perfused. NEUROLOGICALLY: Awake alert. No gross focal deficit. Cranial nerves 2-12 are intact. There is no pronator drift. There is no nystagmus. There is no facial droop. Speech is clear. Vision is grossly normal. Has some difficulty following commands. Mild confusion, baseline per family. MUSCULOSKELETAL: Good muscle tone. No evidence of trauma. Medical Decision & Procedures ER Provider Diagnostic Interpretation: There is a large mixed density loculated subdural collection over the left hemisphere measures up to approximately 29 mm in thickness. This results effacement of the left hemisphere and the left lateral ventricle with approximately 8 mm of midline shift [id number]. Laboratory Results WBC 7.24, HGB 12.7, BUN 17, Creatinine 0.7, electrolytes normal, glucose 126 ED Course 0943: Previous medical records were reviewed. The patient was evaluated in room B2. A complete history and physical examination was performed. 1042: I discussed the patient's case with Dr. Lal, [facility] Neurosurgery. The patient will be transferred to [facility] for further treatment and disposition. 1047: On reevaluation, the patient is resting comfortably. I discussed the results and findings with her family. They verbalized agreement of the treatment plan. The patient will be evaluated for further management and care by [facility]. Medical Decision This is a 85-year-old female who presents to the ED with a chief complaint of intracranial bleed. The patient had an outpatient MRI at the [facility] that revealed a subdural hemorrhage. The patient has had a decline in her baseline status over the past couple of weeks, according to family. She is had decreased coordination and increased weakness on the right side. The patient does have a history of primary progressive aphasia. The patient lives with her family. She has had increased difficulty doing her ADLs over the past couple of weeks. Patient's neurologic exam is noted above. Her vital signs are stable. She is afebrile. She has some difficulty with following some commands but otherwise does follow some basic commands. She has some difficulty with recognizing her family. I spoke with the neurosurgeon, Dr. Lal, from [facility]. I confirm with the family that there willing to allow the patient to have surgery. They agreed to this. The patient be transferred to [facility] by ALS embolus. Her neurologic status remained stable during her ED stay. She did have outpatient blood work yesterday at [facility] around 4 PM. No additional studies were performed here. Consults Time Called: 1027 Consulting Physician: Dr. Lal, [facility] Neurosurgery Returned Call: [phone] I discussed the patient's case with him. The patient will be transferred to [facility] for further treatment and disposition. Impression Primary Impression: SDH (subdural hematoma) Critical Care I have personally spent 30 minutes of critical care time in the direct management of this patient. This includes bedside care, interpretation of diagnostic studies, and testing, discussion with consultants, patient, and family members, and other required patient management activities. This 30 minutes is in excess of all separately billable procedures. Scribe Attestation The scribe's documentation has been prepared under my direction and personally reviewed by me in its entirety. I confirm that the note above accurately reflects all work, treatment, procedures, and medical decision making performed by me. Departure Information Dispostion Transfer Acute Care Facility Referrals Humberto Ibanez D.O. (PCP) Patient Instructions My [facility]
[2016-05-20 12:38] VITALS: BP 149/76; PULSE 64; O2SAT 94
== END 2016-05-20 12:40 | disposition short-term general hospital (02) ==
LOC: EDBD 09:37 → C.EDB 09:39
DX: I62.00 Nontraumatic subdural hemorrhage, unspecified (principal); I10 Essential (primary) hypertension; E11.9 Type 2 diabetes mellitus without complications; E78.5 Hyperlipidemia, unspecified; R53.1 Weakness; J44.9 Chronic obstructive pulmonary disease, unspecified; M81.0 Age-related osteoporosis without current pathological fracture; F32.9 Major depressive disorder, single episode, unspecified; M19.90 Unspecified osteoarthritis, unspecified site; Z87.898 Personal history of other specified conditions; Z85.3 Personal history of malignant neoplasm of breast; Z90.10 Acquired absence of unspecified breast and nipple; Z90.710 Acquired absence of both cervix and uterus; Z98.49 Cataract extraction status, unspecified eye; Z96.659 Presence of unspecified artificial knee joint; Z98.890 Other specified postprocedural states; Z79.899 Other long term (current) drug therapy; Z88.1 Allergy status to other antibiotic agents; Z88.5 Allergy status to narcotic agent; Z88.8 Allergy status to other drugs, medicaments and biological substances; Z80.9 Family history of malignant neoplasm, unspecified; Z83.3 Family history of diabetes mellitus; Z83.79 Family history of other diseases of the digestive system; Z82.49 Family history of ischemic heart disease and other diseases of the circulatory system

== ENCOUNTER 2016-06-18 08:15 | Emergency (ER) | payer OTHER ==
[~2016-06-18 08:15] MED LIST changes: -ALBINS INH; +ALBINS/ INH; -ATV1 PO; +CHOL1000 PO; -CHOL100010 PO; +CLBCRM30 EXT; -CLOB-65 EXT; -CZR50 PO; +LORA1TAB13 PO; +LOSA1TAB38 PO; +ZNTT/150 PO
[2016-06-18] MEDS ORDERED: ALBUT/IPRATROP 3MG/0.5MG NEB 3 ML VIAL INH STA (08:25)
[2016-06-18 08:27] VITALS: TEMP 37.6
[2016-06-18 08:29] VITALS: O2SAT 94
[2016-06-18] MEDS ORDERED: LEVOFLOXACIN 250 MG TAB PO STA (08:43)
[2016-06-18 10:13] VITALS: BP 154/82; O2SAT 96
--- NOTE | 2016-06-18 10:24 | EMERGENCY ROOM VISIT NOTE ---
History Report prepared by Madeleine: Manfred Cook Under the Supervision of: Dr. Ashok Liriano M.D. First contact with patient: 08:17 Stated Complaint: SHORTNESS OF BREATH History of Present Illness The patient is an 86 year old female who presents to the Emergency Room with increased shortness of breath for the past week. The patient is on hospice care. The family called EMS and she was brought to the ED. The patient was in the ED on May 20 when they found a subdural hematoma and she was transferred to [facility]. She is nonverbal at baseline now secondary to the brain bleed. She is 96% on 2L, per nursing staff. History is limited secondary to nonverbal status. Source of History: nursing staff History Limited By: other (nonverbal) Onset: one week Position: other (respiratory) Quality: other (short of breath) Timing: other (increased) Review of Systems ROS is limited secondary to nonverbal status. Past Medical & Surgical Medical Problems: (1) Breast cancer (2) Chest pain (3) COPD (chronic obstructive pulmonary disease) (4) Depressive disorder (5) DM (diabetes mellitus) (6) Dyslipidemia (7) Generalized weakness (8) HTN (hypertension) (9) Lung nodules (10) Osteoarthritis (11) Osteoporosis (12) Port catheter in place Surgical Problems: (1) H/O mastectomy (2) H/O: hysterectomy (3) History of appendectomy (4) History of cataract surgery (5) S/P knee replacement Family History Cancer Diabetes mellitus Gallbladder disease Heart disease Hypertension Social History Smoking Status: Never Smoker Alcohol Use: none Marital Status: Housing Status: lives alone Occupation Status: retired Current/Historical Medications Scheduled Acetaminophen (Tylenol), 650 MG PO Q6HR PRN Ascorbic Acid (Vitamin C), 1,000 MG PO QAM Camphor & Menthol (Sarna), 1 APPLN EXT UD Cholecalciferol (Vitamin D3), 1 TAB PO DAILY Clotrimazole (Lotrimin 1%), 1 APPLN TOP BID Fluticasone Prop/Salmeterol (Advair Diskus 250-50 Mcg/Dose), 1 PUFF INH BID Fulvestrant (Faslodex), 250 MG IM Q4WK Levetiractam (Levetiracetam), 1 TAB PO DAILY Losartan Potassium (Cozaar), 100 MG PO DAILY Oxygen (Oxygen), 2 LITERS NA CONTINOUS Pantoprazole (Protonix), 40 MG PO DAILY Prednisone (Prednisone), 5 MG PO Q2D Ranitidine (Zantac), 150 MG PO BID Sertraline (Zoloft), 100 MG PO HS Tamoxifen (Nolvadex), 20 MG PO DAILY Scheduled PRN Albuterol (Ventolin Hfa), 2 PUFF INH Q4 PRN for SOB/Wheezing Albuterol Sulf (Proventil 0.083% 2.5MG/3ML), 2.5 MG INH QID PRN for SOB/Wheezing Benzonatate (Tessalon Perles), 1 CAP PO TID PRN for Cough Betamethasone Dip (Betamethasone Dipropionat), 1 DOSE TOP DAILY PRN for PRN Clobetasol Propionate (Clobetasol Propionate Cream 0.05%), 1 APPLN EXT BID PRN for Affected Skin Folds Clotrimazole (Topical) (Lotrimin Af), 1 APPLN TOP BID PRN for skin impairment Guaifenesin (Robitussin), 4 ML PO Q4H PRN for Cough Lorazepam (Lorazepam), 1 TAB PO for Anxiety Ondansetron Hcl (Zofran), 4 MG PO Q6 PRN for Nausea Polyethylene (Miralax), 17 MG PO DAILY PRN for Constipation Triamcinolone Acet (Aristocort 0.1%), 1 APPLN EXT BID PRN for skin impairment Allergies Coded Allergies: Loratadine (Unverified Allergy, Severe, ITCHING, 06/18/16) Amoxicillin (Verified Allergy, Mild, ITCHING, 06/18/16) Colchicine (Verified Allergy, Mild, RASH ITCHING, 06/18/16) Dimenhydrinate (Verified Allergy, Mild, ITCHING, 06/18/16) Homatropine (Verified Allergy, Mild, ITCHING, 06/18/16) Hydrocodone (Verified Allergy, Mild, ITCHING, 06/18/16) Hydroxyzine (Verified Allergy, Mild, ITCHING, 06/18/16) Meperidine (Verified Allergy, Mild, RASH, 06/18/16) Morphine (Verified Allergy, Mild, ITCHING, 06/18/16) Opioid Analgesics (Unverified Allergy, Mild, RASH ITCHING, 06/18/16) Allopurinol (Verified Allergy, Unknown, RASH, 06/18/16) ROSALIA Inhibitors (Unverified Adverse Reaction, Mild, COUGH, 06/18/16) Atorvastatin (Unverified Adverse Reaction, Mild, BONE PAIN, 06/18/16) Gabapentin (Unverified Adverse Reaction, Mild, FATIGUE, 06/18/16) Physical Exam Vital Signs Date Time Temp Pulse Resp B/P Pulse Ox O2 Delivery O2 Flow Rate FiO2 06/18/16 12:23 88 06/18/16 10:13 97 22 154/82 96 Nasal Cannula 2.0 06/18/16 08:29 94 Nasal Cannula 2.0 06/18/16 08:27 37.6 84 24 198/114 93 Nasal Cannula 2.0 06/18/16 08:22 82 Physical Exam GENERAL: Patient is in no acute distress. HEENT: No acute trauma, normocephalic atraumatic, mucous membranes moist, no nasal congestion, no scleral icterus. NECK: No stridor, no adenopathy, no meningismus, trachea is midline. LUNGS: Wheezing and rhonchi bilaterally, breath sounds are equal no respiratory distress. HEART: Cannot assess secondary to lung sounds. ABDOMEN: Soft, nontender, bowel sounds positive, no hernias, no peritonitis. EXTREMITIES: No cyanosis, full range of motion of all the joints without pain or difficulty, no signs for acute trauma. NEUROLOGIC: Nonverbal, awake, exam is consistent with described neurologic deficits and nonverbal status. SKIN: No rash, no jaundice, no diaphoresis. Medical Decision & Procedures Medications Administered Medications (Trade) Dose Ordered Sig/Michael Route Start Time Stop Time Status Last Admin Dose Admin Albuterol/ Ipratropium (Duoneb) 3 ml NOW STAT INH 06/18/16 08:25 06/18/16 08:27 DC 06/18/16 08:30 3 ML ED Course 0619: The patient was evaluated in room B7. A complete history and physical exam was performed. 0825: DuoNeb 3 ml INH ordered. 0830: Had a long discussion with the patient's family. Discussed the options with them. 0840: Case Management made aware of the situation. 0843: Levofloxacin 750 mg PO ordered. Medication was not administered secondary to difficulty swallowing. 0900: Hospice team will be in the speak with the family. 1030: The patient will be placed at [facility] for further hospice care. 1230: The patient was transferred to [facility]. Medical Decision Differential diagnosis includes pneumonia or bronchitis, respiratory failure, dehydration, renal failure, [place]. The patient presents with some respiratory difficulty. She is a hospice patient and is currently nonverbal. She has paperwork with her that clearly states she's not to receive IV hydration, aggressive measures, any hospital stay , she does not want IV antibiotics. Comfort measures were requested. I talked to the family at length. I did not think invasive testing or imaging or a hospital stay was what the patient would want. They clearly agreed and asked for some more help with her care as they are uncomfortable with the hospice care at home. The patient was given a DuoNeb. I did order for some oral antibiotics as she very likely does have a pneumonia or respiratory infection, she though was unable to take this medication. The case packer and sealer have been involved and the hospice staff came and met and there was a family discussion. The patient is being transferred to [facility] for continued hospice care. The family cannot handle this situation at home. Impression Primary Impression: SOB (shortness of breath) Additional Impression: Hospice care Scribe Attestation The scribe's documentation has been prepared under my direction and personally reviewed by me in its entirety. I confirm that the note above accurately reflects all work, treatment, procedures, and medical decision making performed by me. Departure Information Dispostion Other (Transfer to [facility] for Hospice Care) Referrals Humberto Ibanez D.O. (PCP) Forms HOME CARE DOCUMENTATION FORM, IMPORTANT VISIT INFORMATION Patient Instructions My [facility] Additional Instructions report to [facility] for continued Hospice Care Problem Qualifiers
[2016-06-18] MEDS ORDERED: PANT40TA PO (11:23)
[2016-06-18] MEDS ORDERED: LEVE500T PO (11:23)
[2016-06-18 12:23] VITALS: PULSE 88
== END 2016-06-18 12:20 | disposition other institution (70) ==
LOC: EDBD 08:15 → C.EDB 08:16
DX: R06.02 Shortness of breath (principal); E11.9 Type 2 diabetes mellitus without complications; E78.5 Hyperlipidemia, unspecified; I10 Essential (primary) hypertension; F32.9 Major depressive disorder, single episode, unspecified; M19.90 Unspecified osteoarthritis, unspecified site; M81.0 Age-related osteoporosis without current pathological fracture; J44.9 Chronic obstructive pulmonary disease, unspecified; Z85.3 Personal history of malignant neoplasm of breast; Z90.10 Acquired absence of unspecified breast and nipple; Z90.710 Acquired absence of both cervix and uterus; Z98.890 Other specified postprocedural states; Z79.899 Other long term (current) drug therapy; Z88.3 Allergy status to other anti-infective agents; Z88.5 Allergy status to narcotic agent; Z88.8 Allergy status to other drugs, medicaments and biological substances; Z80.9 Family history of malignant neoplasm, unspecified; Z83.3 Family history of diabetes mellitus; Z83.79 Family history of other diseases of the digestive system; Z82.49 Family history of ischemic heart disease and other diseases of the circulatory system